=== PATIENT | female | born 1965 | race Caucasian/White ===

== ENCOUNTER 2025-02-10 15:08 | Inpatient (IN) ==
[2025-02-10 15:37] VITALS: BMI 39.2
--- NOTE | 2025-02-10 16:24 | DR.EXTPAIN ---
HPI Time seen Time Seen by Provider: 02/10/25 16:21 PCP Primary Care Physician: Dr. Bob Roque Complaint/Symptoms Chief Complaint Doctor Comments: Patient stated he she had a procedure done to provide blood flow to her left leg. She started having problem with that with a little bleeding from the left side where he Dr. Mccoy first injected 2 provide access to the right arterial system. She has not this and she went back to see Dr. Mccoy in he stated that that was pretty much normal. She started swelling of the right foot about 3 days ago and and it became progressively worse Dr. Mccoy told to come to the emergency room here first evaluated and then called him after we had done it. Chief Complaint:: Patient states that around two weeks ago she had a stent placed for her right through her left groin. She states that after the procedure she started leaking blood from the site. She states that she followed up due to the finding and that Dr. Mccoy stated that it was normal. She states that her right foot has been swelling more and more since the procedure. She states that the swelling comes and goes, but for the past couple of days it has remained swollen and has gotten worse. She states that she is unable to walk on the right foot, and reports the pain a 10/10. COVID-19 Coronavirus risk:travel/contact w/high risk person: No Has patient experienced Coronavirus symptoms: No Source History Provided: Patient Mode of arrival Mode of Arrival: Wheelchair Timing Onset of Chief Complaint: 01/27/25 PMH PMH Past Medical History: Yes Past Medical History: Depression and Hypertension Past Medical History Comment: Afib Past Surgical History: Yes Surgical History: Cholecystectomy and Ortho Surgery Past Surgical History Comment: Pace maker, right foot (screws, pins, plate) Family History History of Family Medical Conditions: Yes Family Medical History: Diabetes Mellitus, Coronary Artery Disease and Hypertension Social History Does patient currently use any type of tobacco product: Yes Have you used tobacco products in the last 12 months: Yes Type of Tobacco Use: Cigarettes Does any household member use tobacco: Yes Alcohol Use: None Do you use any recreational Drugs:: No Lives With: Family Lives Where: Home Travel Risk Coronavirus risk:travel/contact w/high risk person: No Has patient experienced Coronavirus symptoms: No Infectious screening In the last 2 months have you had wt loss of >10#?: NO Have you had fever, night sweats or hemotysis?: No Have you traveled outside the country in the last 6 months?: No Isolation: Standard PE Vital Signs Vitals: Vital Signs Temperature 98.0 F Pulse Rate 89 Respiratory Rate 18 Blood Pressure 139/100 O2 Sat by Pulse Oximetry 97 ROR Labs Reviewed 02/14/25 05:01 02/14/25 05:01 Laboratory: 02/10/25 17:36 Blood Blood Culture - Preliminary 02/10/25 16:20 Blood Blood Culture - Preliminary WBC 9.4 X10^3/uL (3.6-10.0) 02/10/25 16:20 RBC 4.16 X10^6/uL (3.5-5.4) 02/10/25 16:20 Hgb 13.3 g/dL (12.0-16.0) 02/10/25 16:20 Hct 39.4 % (36.0-47.0) 02/10/25 16:20 MCV 94.7 fL (80.0-100.0) 02/10/25 16:20 MCH 32.0 pg (27.0-34.0) 02/10/25 16:20 MCHC 33.8 g/dL (33.0-35.0) 02/10/25 16:20 RDW 13.3 % (11.6-16.5) 02/10/25 16:20 Plt Count 254 X10^3/uL (150.0-450.0) 02/10/25 16:20 MPV 7.8 fL (7.4-11.0) 02/10/25 16:20 Neut % (Auto) 58.8 % (42.0-75.0) 02/10/25 16:20 Lymph % (Auto) 29.6 % (21.0-51.0) 02/10/25 16:20 [place] % (Auto) 8.7 % (0.0-13.0) 02/10/25 16:20 Eos % (Auto) 2.2 % (0.9-2.9) 02/10/25 16:20 Baso % (Auto) 0.7 % (0.2-1.0) 02/10/25 16:20 Neut # (Auto) 5.5 x10^3/uL (2.2-4.8) H 02/10/25 16:20 Lymph # (Auto) 2.8 X10^3/uL (1.3-2.9) 02/10/25 16:20 [place] # (Auto) 0.8 x10^3/uL (0.3-0.8) 02/10/25 16:20 Eos # (Auto) 0.2 x10^3/uL (0.0-0.2) 02/10/25 16:20 Baso # (Auto) 0.1 X10^3/uL (0.0-0.1) 02/10/25 16:20 Absolute Nucleated RBC 0.0 /100WBC 02/10/25 16:20 PT 13.8 SECONDS (11.8-14.3) 02/10/25 16:20 INR Target Range - 02/10/25 16:20 INR 1.05 (0.8-1.3) 02/10/25 16:20 APTT 27.8 SECONDS (22.9-36.5) 02/10/25 16:20 PTT Comment - 02/10/25 16:20 D-Dimer 0.85 ug/ml (0.0-0.57) H 02/10/25 16:20 Sodium 138 mmol/L (136-145) 02/10/25 16:20 Corrected Sodium 138 mmol/L (136-145) 02/10/25 16:20 Potassium 3.6 mmol/L (3.5-5.1) 02/10/25 16:20 Chloride 104 mmol/L (98-107) 02/10/25 16:20 Carbon Dioxide 25.0 mmol/L (21-32) 02/10/25 16:20 BUN 12 mg/dL (7-18) 02/10/25 16:20 Creatinine 0.87 mg/dL (0.55-1.02) 02/10/25 16:20 Est GFR (MDRD) Af Amer > 60 (>60) 02/10/25 16:20 Est GFR (MDRD) Non-Af > 60 (>60) 02/10/25 16:20 Glucose 118 mg/dL (65-99) H 02/10/25 16:20 Lactic Acid 1.4 mmol/L (0.4-2.0) 02/10/25 16:20 Calcium 8.3 mg/dL (8.5-10.1) L 02/10/25 16:20 Corrected Calcium 9.1 mg/dL (8.5-10.1) 02/10/25 16:20 Total Bilirubin 0.30 mg/dL (0.2-1.0) 02/10/25 16:20 AST 13 Units/L (15-37) L 02/10/25 16:20 ALT 12 Units/L (12-78) 02/10/25 16:20 Alkaline Phosphatase 90 Units/L (46-116) 02/10/25 16:20 Total Protein 6.8 g/dL (6.4-8.2) 02/10/25 16:20 Albumin 3.0 g/dL (3.4-5.0) L 02/10/25 16:20 Globulin 3.8 g/dL (2.5-4.5) 02/10/25 16:20 Albumin/Globulin Ratio 0.8 Ratio (1.1-2.1) L 02/10/25 16:20 Opioid Opioid Risk Tool Age (Aj box if 16-45): No History of Preadolescent Sexual Abuse: No Total: 0 Total Score Risk Category: Low Risk Copyright: Arley GUERRA predicting aberrant behaviors Discharge Plan Diagnosis Discharge Problem: Ischemia of right lower extremity Discharge Plan Patient Disposition: ADMITTED INPATIENT Condition: Stable
[2025-02-10 17:09] LABS: BASOPHILS # (AUTO) 0.1 X10^3/uL (0.0-0.1); BASOPHILS % (AUTO) 0.7 % (0.2-1.0); EOSINOPHILS # (AUTO) 0.2 x10^3/uL (0.0-0.2); EOSINOPHILS % (AUTO) 2.2 % (0.9-2.9); HEMATOCRIT 39.4 % (36.0-47.0); HEMOGLOBIN 13.3 g/dL (12.0-16.0); LYMPHOCYTES # (AUTO) 2.8 X10^3/uL (1.3-2.9); LYMPHOCYTES % (AUTO) 29.6 % (21.0-51.0); MEAN CORPUSCULAR HGB CONC 33.8 g/dL (33.0-35.0); MEAN CORPUSCULAR VOLUME 94.7 fL (80.0-100.0); MEAN PLATELET VOLUME 7.8 fL (7.4-11.0); MONOCYTES # (AUTO) 0.8 x10^3/uL (0.3-0.8); MONOCYTES % (AUTO) 8.7 % (0.0-13.0); NEUTROPHILS # (AUTO) 5.5 x10^3/uL (2.2-4.8); NEUTROPHILS % (AUTO) 58.8 % (42.0-75.0); PLATELET COUNT 254 X10^3/uL (150.0-450.0); RED BLOOD COUNT 4.16 X10^6/uL (3.5-5.4); RED CELL DISTRIBUTION WIDTH 13.3 % (11.6-16.5); WHITE BLOOD COUNT 9.4 X10^3/uL (3.6-10.0)
[2025-02-10 17:16] LABS: INR 1.05 (0.8-1.3)
--- NOTE | 2025-02-10 17:16 | VAS ---
EXAM: LOWER EXT VENOUS, UNILATERAL HISTORY: Swelling and redness of the left foot; SWELLING/REDNESS RT FOOT COMPARISON: None available. TECHNIQUE: Multiple garcía scale and color flow Doppler images of the deep venous system were obtained of the right lower extremity. FINDINGS: The deep venous system of the right lower extremity was evaluated from the level of the common femoral vein through the popliteal vein. Normal color flow and augmentation can be observed. In addition, normal compression is seen throughout the deep venous system. IMPRESSION: Negative for DVT. THIS IS AN ELECTRONICALLY VERIFIED FINAL REPORT 02/10/2025 5:13 PM - Electronically signed by Conrado Loza MD
[2025-02-10 17:21] LABS: ALANINE AMINOTRANSFERASE 12 Units/L (12-78); ALKALINE PHOSPHATASE 90 Units/L (46-116); ASPARTATE AMINO TRANSFERASE 13 Units/L (15-37); BLOOD UREA NITROGEN 12 mg/dL (7-18); CALCIUM 8.3 mg/dL (8.5-10.1); CHLORIDE 104 mmol/L (98-107); COR CA(FOR HYPOALB) 9.1 mg/dL (8.5-10.1); COR NA(FOR HYPERGLY) 138 mmol/L (136-145); CREATININE 0.87 mg/dL (0.55-1.02); GLUCOSE 118 mg/dL (65-99); POTASSIUM 3.6 mmol/L (3.5-5.1); SODIUM 138 mmol/L (136-145); TOTAL PROTEIN 6.8 g/dL (6.4-8.2); eGFR NON BLACK RACES > 60 (>60)
[2025-02-10] MEDS ORDERED: KETAMINE HCL ONE (17:42)
[2025-02-10] MEDS ORDERED: PROTAMINE SULFATE 50 MG VIAL ONE (17:42)
[2025-02-10] MEDS: DILAUDID INJ IVP PRN (19:54)
[2025-02-10] MEDS ORDERED: PHARMACY CONSULT - LOVENOX XX SCH (20:00)
[2025-02-10] MEDS ORDERED: LOVENOX INJ 80 MG SYR SC SCH (20:00)
--- NOTE | 2025-02-10 20:31 | DR.H&P ---
H&P History & Physical for Day of: H&P Date: 02/10/25 Chief Complaint Chief Complaint: rest pain and blistering of the right foot History of Present Illness History of Present Illness: 60-year-old female with history of atrial fibrillation and congestive heart failure. Patient has had recent arterial intervention of the right leg including atherectomy and drug-coated balloon angioplasty of all the occluded stents of the right superficial artery, stenting of the right external iliac artery and drug-coated balloon angioplasty of the right common femoral artery. Patient was had the original procedure done on January 28. Follow-up in the office and the patient was doing well at 1 week. History as above. Patient's right foot is cool at this time. Prior to procedure done on 28 January patient had been cleared by cardiology.Patient continues to smoke heavily. Known to have critical ischemia of the left leg as well and was planning intervention of this in the near future. Past Medical History Past Medical History: CHF, COPD, Depression, GERD and Hypertension Additional Medical History: atrial fibrillation, neuropathy Past Surgical History Surgical History: Cholecystectomy and Ortho Surgery Family History Family Medical History: Coronary Artery Disease and Hypertension Social History Does patient currently use any type of tobacco product: Yes Have you used tobacco products in the last 12 months: Yes Type of Tobacco Use: Cigarettes How many years tobacco product used: 48 Does any household member use tobacco: Yes Alcohol Use: None Drug Use: None Medications Home Medications: Eliquis 5 mg twice daily Plavix 75 mg daily Percocet 5 mg tablets every 8 hours as needed Methocarbamol 750 mg daily Pramipexole Dihydrocholride 0,126 mg daily Coreg 6.25 milligrams twice daily Vitamin D 50,000 unit Montelukast 10 mg daily as needed Cetirizine 10 mg as needed Gabapentin 300 mg twice daily Atorvastatin 40 mg Omeprazole 40 mg daily Paroxetine 20 mg in the morning Diltiazem ER 180 mg daily Potassium chloride 10 mg daily Entresto 49-51 1 tablet twice daily Allergies Allergies Allergy/AdvReac Type Severity Reaction Status Date / Time No Known Allergies Allergy Verified 02/10/25 17:17 Labs 02/10/25 16:20 02/10/25 16:20 Labs: Laboratory WBC 9.4 X10^3/uL (3.6-10.0) 02/10/25 16:20 RBC 4.16 X10^6/uL (3.5-5.4) 02/10/25 16:20 Hgb 13.3 g/dL (12.0-16.0) 02/10/25 16:20 Hct 39.4 % (36.0-47.0) 02/10/25 16:20 MCV 94.7 fL (80.0-100.0) 02/10/25 16:20 MCH 32.0 pg (27.0-34.0) 02/10/25 16:20 MCHC 33.8 g/dL (33.0-35.0) 02/10/25 16:20 RDW 13.3 % (11.6-16.5) 02/10/25 16:20 Plt Count 254 X10^3/uL (150.0-450.0) 02/10/25 16:20 MPV 7.8 fL (7.4-11.0) 02/10/25 16:20 Neut % (Auto) 58.8 % (42.0-75.0) 02/10/25 16:20 Lymph % (Auto) 29.6 % (21.0-51.0) 02/10/25 16:20 [place] % (Auto) 8.7 % (0.0-13.0) 02/10/25 16:20 Eos % (Auto) 2.2 % (0.9-2.9) 02/10/25 16:20 Baso % (Auto) 0.7 % (0.2-1.0) 02/10/25 16:20 Neut # (Auto) 5.5 x10^3/uL (2.2-4.8) H 02/10/25 16:20 Lymph # (Auto) 2.8 X10^3/uL (1.3-2.9) 02/10/25 16:20 [place] # (Auto) 0.8 x10^3/uL (0.3-0.8) 02/10/25 16:20 Eos # (Auto) 0.2 x10^3/uL (0.0-0.2) 02/10/25 16:20 Baso # (Auto) 0.1 X10^3/uL (0.0-0.1) 02/10/25 16:20 Absolute Nucleated RBC 0.0 /100WBC 02/10/25 16:20 PT 13.8 SECONDS (11.8-14.3) 02/10/25 16:20 INR Target Range - 02/10/25 16:20 INR 1.05 (0.8-1.3) 02/10/25 16:20 APTT 27.8 SECONDS (22.9-36.5) 02/10/25 16:20 PTT Comment - 02/10/25 16:20 D-Dimer 0.85 ug/ml (0.0-0.57) H 02/10/25 16:20 Sodium 138 mmol/L (136-145) 02/10/25 16:20 Corrected Sodium 138 mmol/L (136-145) 02/10/25 16:20 Potassium 3.6 mmol/L (3.5-5.1) 02/10/25 16:20 Chloride 104 mmol/L (98-107) 02/10/25 16:20 Carbon Dioxide 25.0 mmol/L (21-32) 02/10/25 16:20 BUN 12 mg/dL (7-18) 02/10/25 16:20 Creatinine 0.87 mg/dL (0.55-1.02) 02/10/25 16:20 Est GFR (MDRD) Af Amer > 60 (>60) 02/10/25 16:20 Est GFR (MDRD) Non-Af > 60 (>60) 02/10/25 16:20 Glucose 118 mg/dL (65-99) H 02/10/25 16:20 Lactic Acid 1.4 mmol/L (0.4-2.0) 02/10/25 16:20 Calcium 8.3 mg/dL (8.5-10.1) L 02/10/25 16:20 Corrected Calcium 9.1 mg/dL (8.5-10.1) 02/10/25 16:20 Total Bilirubin 0.30 mg/dL (0.2-1.0) 02/10/25 16:20 AST 13 Units/L (15-37) L 02/10/25 16:20 ALT 12 Units/L (12-78) 02/10/25 16:20 Alkaline Phosphatase 90 Units/L (46-116) 02/10/25 16:20 Total Protein 6.8 g/dL (6.4-8.2) 02/10/25 16:20 Albumin 3.0 g/dL (3.4-5.0) L 02/10/25 16:20 Globulin 3.8 g/dL (2.5-4.5) 02/10/25 16:20 Albumin/Globulin Ratio 0.8 Ratio (1.1-2.1) L 02/10/25 16:20 Review of Systems Constitutional: See HPI Eyes: No Symptoms Reported ENT: No Symptoms Reported Respiratory: No Symptoms Reported Cardiovascular: Other (Cool right leg with rest pain) Gastrointestinal: No Symptoms Reported Genitourinary: No Symptoms Reported Musculoskeletal: See HPI Skin: See HPI Neurological: See HPI Physical Exam Vital Signs: Vital Signs Temperature 98.5 F Temperature 98.0 F Pulse Rate [Right Radial] 90 Pulse Rate 103 Pulse Rate 99 Pulse Rate 92 Pulse Rate 102 Pulse Rate 93 Pulse Rate 96 Pulse Rate 101 Pulse Rate 89 Respiratory Rate 20 Respiratory Rate 20 Respiratory Rate 33 Respiratory Rate 21 Respiratory Rate 7 Respiratory Rate 11 Respiratory Rate 32 Respiratory Rate 17 Respiratory Rate 21 Respiratory Rate 18 Blood Pressure [Left Arm] 165/111 Blood Pressure 144/84 Blood Pressure 144/84 Blood Pressure 131/97 Blood Pressure 139/100 O2 Sat by Pulse Oximetry 100 O2 Sat by Pulse Oximetry 100 O2 Sat by Pulse Oximetry 99 O2 Sat by Pulse Oximetry 100 O2 Sat by Pulse Oximetry 97 Oriented: Normal, Time, Person and Place Eyes: Normal Ear: Normal Nose: Normal Throat: Normal Respiratory: Wheezes Throughout Cardiovascular: Normal : Normal Auscultation: Bowel Sounds: Normal Palpation: Normal Tenderness: Normal Skin: Other (Right foot cool with early blistering) Musculoskeletal: Normal Psychiatric: Normal Mood Description: Anxious Affect: Anxious Speech Pattern: Clear and Appropriate Assessment/Plan (1) Ischemia of right lower extremity: Status: Acute Plan: Patient to be admitted. Placed on therapeutic Lovenox. Will obtain CT angiogram of the aorta with bilateral runoff (2) Congestive heart failure: Status: Acute Plan: Usual home medication (3) Essential (primary) hypertension: Status: Acute Plan: Home medications (4) Chronic obstructive pulmonary disease, unspecified: Status: Acute Plan: Home medications (5) Neuropathy: Status: Acute Plan: Home medications (6) Hyperlipidemia: Status: Acute Plan: Home medications (7) Gastro-esophageal reflux disease without esophagitis: Status: Acute Plan: Home medications (8) Atrial fibrillation: Status: Acute Plan: Will hold Eliquis for now and start therapeutic Lovenox Review H&P Reviewed: Yes Patient was examined?: Yes
--- NOTE | 2025-02-10 20:53 | EKG ---
Test Reason : Ischemic Rt. Leg Blood Pressure : */* mmHG Vent. Rate : 92 BPM Atrial Rate : * BPM P-R Int : * ms QRS Dur : 68 ms QT Int : 300 ms P-R-T Axes : * 23 -40 degrees QTc Int : 371 ms Atrial fibrillation with occasional ventricular-paced complexes Low voltage QRS Nonspecific T wave abnormality Abnormal ECG No previous ECGs available Confirmed by Dayne Li MD ([id number]) on 02/11/2025 7:06:28 AM Referred By: Confirmed By: Dayne Li MD
[2025-02-10] MEDS: LR 1,000 ML IV 1,000 ML IV SCH (21:17)
[2025-02-10] MEDS: ENTRESTO 49/51 MG TABLET PO SCH (21:18)
[2025-02-10] MEDS: COREG TAB 6.25 MG PO SCH (21:18)
[2025-02-10] MEDS: NEURONTIN CAP 300 MG PO SCH (21:18)
[2025-02-10] MEDS: SINGULAIR TAB 10 MG PO SCH (21:19)
[2025-02-10] MEDS: LOVENOX INJ 120 MG SYR SC SCH (21:19)
[2025-02-11] MEDS: HEPARIN SODIUM INJ 5000 UNITS ONE (08:13)
[2025-02-11] MEDS: CARDIZEM CD 180 MG 24-HR PO SCH (08:35)
--- NOTE | 2025-02-11 08:41 | RAD ---
EXAMINATION: CHEST, 1 VIEW HISTORY: PRE OP-ISCHEMIA RIGHT LEG ; HTN, AFIB SX: MIKE, ORTHO, PACEMAKER, RIGHT FOOT . COMPARISON STUDY: None. TECHNIQUE: Single portable AP view chest FINDINGS: Lungs are expanded. Moderate cardiac silhouette enlargement. Normal pulmonary vascular pattern. Cardiac pacer device left upper chest. Bones appear intact IMPRESSION: Cardiac silhouette enlargement. THIS IS AN ELECTRONICALLY VERIFIED FINAL REPORT 02/11/2025 8:38 AM - Electronically signed by Kerry Ibanez MD
--- NOTE | 2025-02-11 08:46 | RAD ---
EXAM: Portable chest HISTORY: PICC placement COMPARISON: 02/11/2025 FINDINGS: T here is a pacemaker present in the left axilla. There is a new left-sided PICC line with its tip in the expected position of the superior vena cava. Heart is enlarged. No congestive heart failure is noted. No acute alveolar infiltrates, pleural effusions, or pneumothoraces identified. Bony thorax is unremarkable. IMPRESSION: Right PICC tip superior vena cava Cardiomegaly without congestive heart failure No infiltrates THIS IS AN ELECTRONICALLY VERIFIED FINAL REPORT 02/11/2025 8:43 AM - Electronically signed by Misael Montenegro MD
--- NOTE | 2025-02-11 08:56 | DR.UPDATE ---
H&P Update Prescription drug monitoring program results: PDMP was not reviewed H&P Reviewed: Yes Any changes to H&P?: No Patient was examined?: Yes Vital Signs: Temp Pulse Pulse Resp BP BP BP 02/11/25 08:25 98.6 F 98 H 20 132/98 02/11/25 07:00 02/11/25 06:26 18 02/11/25 05:56 18 02/11/25 04:00 98.2 F 85 19 134/82 02/11/25 00:36 20 02/11/25 00:06 20 02/11/25 00:00 98.1 F 99 H 20 155/89 02/10/25 22:41 122/77 02/10/25 21:00 167/100 02/10/25 20:24 20 02/10/25 20:00 98.3 F 76 20 02/10/25 19:54 20 02/10/25 19:00 02/10/25 18:49 98.5 F 90 20 165/111 02/10/25 17:15 103 H 33 H 02/10/25 16:45 99 H 21 02/10/25 16:31 144/84 02/10/25 16:31 144/84 02/10/25 16:31 92 H 7 L 02/10/25 16:30 102 H 11 L 02/10/25 16:15 93 H 32 H 02/10/25 16:00 96 H 17 02/10/25 15:56 101 H 21 02/10/25 15:54 131/97 02/10/25 15:24 98.0 F 89 18 139/100 Pulse Ox O2 Del Method 02/11/25 08:25 98 Room Air 02/11/25 07:00 Room Air 02/11/25 06:26 02/11/25 05:56 02/11/25 04:00 96 02/11/25 00:36 02/11/25 00:06 02/11/25 00:00 99 02/10/25 22:41 02/10/25 21:00 02/10/25 20:24 02/10/25 20:00 99 02/10/25 19:54 02/10/25 19:00 Room Air 02/10/25 18:49 100 02/10/25 17:15 100 02/10/25 16:45 02/10/25 16:31 02/10/25 16:31 02/10/25 16:31 02/10/25 16:30 02/10/25 16:15 02/10/25 16:00 99 02/10/25 15:56 100 02/10/25 15:54 02/10/25 15:24 97 Room Air Procedures (ALL) - Central Line Placement PCM.CLCO: written consent Time out performed: Yes Patient placed pm monitor/pulse ox: Yes MD prep: mask, gown, gloves, other Centrial line prep: chlorhexidine scrub, sterile drapes applied Local anesthsia used: lidocane 1% Ultrasound used for placement: Yes (left basilic vein id'd via u/s and cannulation vis) Central line lumen ininserted: double (5.5fr arrowgard; trimmed to 45cm, 1cm exposed) Post procedure: good blood return, all ports aspirated, flushed,capped, sterile dressing applied Post procedure xray: tip oc catheter in good position (appears svc; radiology report pending) Patient tolerated procedure: Yes Complications: none
[2025-02-11] MEDS: LOVENOX INJ 100 MG SYR SC SCH (09:46)
[2025-02-11] MEDS: ROBAXIN PO SCH (12:57)
[2025-02-11] MEDS: KLOR-CON 10 MEQ TAB PO SCH (12:57)
[2025-02-11] MEDS: ASPIRIN EC 81 MG PO SCH (12:57)
[2025-02-11] MEDS: PROTONIX TAB 40 MG PO SCH (12:58)
[2025-02-11] MEDS: LIPITOR TAB 40 MG PO SCH (12:58)
[2025-02-11] MEDS: ZyrTEC TAB 10 MG PO SCH (12:58)
[2025-02-11] MEDS: MIRAPEX TAB 0.25 MG PO SCH (12:58)
[2025-02-11] MEDS: VITAMIN D3 125 mcg (5,000 UNITS) PO SCH (12:58)
[2025-02-11] MEDS: PAXIL PO SCH (12:59)
--- NOTE | 2025-02-11 13:07 | CT ---
EXAM: CT ANGIOGRAM ABDOMEN, PELVIS, AND BILATERAL LOWER EXTREMITIES WITH AND WITHOUT CONTRAST 3-DIMENSIONAL RECONSTRUCTED IMAGES AT INDEPENDENT WORKSTATION. HISTORY: ISCHEMIC RIGHT LEG ; . COMPARISON: CTA dated 11/26/2024. TECHNIQUE: Axial CT images were obtained through the abdomen and pelvis and bilateral lower extremities both before after the intravenous administration of contrast. Coronal and sagittal reformatted images were included. MIP images were also performed. 3D reconstructions were performed with concurrent physician supervision at a separate independent workstation and MIP images were also performed. Informed written consent was obtained from the patient prior to contrast administration. All CT scans at this facility use dose modulation, iterative reconstruction, and/or weight based dosing when appropriate to reduce radiation dose to as low as reasonably achievable. FINDINGS: VASCULAR FINDINGS: ABDOMEN/PELVIS: Moderate mixed abdominal aortic plaque without aneurysm or stenosis. Patent celiac trunk with mixed plaque in the midportion. Widely patent superior mesenteric artery. Moderate right and mild left renal artery stenosis. Inferior mesenteric artery is patent. Mixed plaque throughout the left common and external iliac arteries with scattered moderate stenosis. Mixed right common iliac artery plaque with mild stenosis. Right external iliac artery stent is widely patent with surrounding moderate calcified plaque. LEFT LOWER EXTREMITY: Calcified plaque in the left common femoral artery with [id number]-[id number] stenosis. Patent left profunda femoral artery. Mixed plaque throughout the left superficial femoral artery which is diminutive with scattered areas of moderate stenosis. Left popliteal artery and tibioperoneal trunk are patent with moderate calcifications. Left calf arteries are diminutive and there is a single-vessel runoff to the left ankle via the posterior tibial artery. RIGHT LOWER EXTREMITY: Mixed plaque in the right common femoral artery with moderate stenosis. Right profunda femoral artery is somewhat diminutive but patent. The right superficial femoral artery stent is completely occluded. There is distal reconstitution of the right popliteal artery via collateral flow with diminutive popliteal artery. Distal right calf arteries are diminutive and poorly opacified and there is a single-vessel runoff to the right ankle via the posterior tibial artery. NON VASCULAR FINDINGS: Clear lung bases. Partially visualized ICD/pacer leads. Unremarkable liver. Prior cholecystectomy. No biliary dilatation. Spleen, pancreas, and adrenals are unremarkable. Kidneys enhance symmetrically and there is no hydronephrosis. No abnormally distended or focally thickened bowel loops. Normal right lower quadrant appendix. Mild colonic stool burden. No free peritoneal air or fluid. Unremarkable urinary bladder. Uterus and adnexa are within normal limits. No free pelvic fluid. No acute osseous findings. Moderate lumbar spondylosis. Stable postsurgical changes of the distal right fibula with fixation hardware in place. IMPRESSION: 1. Right superficial femoral artery stent is completely occluded with distal reconstitution at the right popliteal artery via collateral flow. Right calf arteries are diminutive with a single-vessel runoff to the right ankle via the posterior tibial artery. 2. Moderate left lower extremity peripheral vascular disease with scattered areas of moderate stenosis throughout the left superficial femoral artery. Single-vessel runoff to the left ankle via the posterior tibial artery. 3. No acute findings in the abdomen or pelvis. THIS IS AN ELECTRONICALLY VERIFIED FINAL REPORT 02/11/2025 12:55 PM - Electronically signed by Min Goss MD
[2025-02-11] MEDS: ACTIVASE CATHFLO 12 MG in NS 250 ML IV 228 ML IV SCH (15:00)
[2025-02-11] MEDS: NS 1,000 ML IV 1,000 ML ONE (15:16)
[2025-02-11] MEDS: LR 1,000 ML IV 1,000 ML IV ONE (15:20)
[2025-02-11] MEDS: NS 100 ML IV 100 ML ONE (15:21)
[2025-02-11] MEDS: ANCEF VIAL 1 GRAM ONE (15:21)
[2025-02-11] MEDS: LR 1,000 ML IV 300 ML IV PRN (15:31)
[2025-02-11] MEDS: ZOFRAN INJ 4 MG VIAL ONE (15:31)
[2025-02-11] MEDS: VERSED ONE (15:31)
[2025-02-11] MEDS: DECADRON INJ ONE (15:31)
[2025-02-11] MEDS: DIPRIVAN VIAL 20 ML ONE ×2 (15:31→15:54)
[2025-02-11] MEDS: ANCEF VIAL 1 GRAM IV PRN (15:31)
[2025-02-11] MEDS: KETAMINE HCL ONE (15:31)
[2025-02-11] MEDS: OMNIPAQUE 350 mg/mL 100 mL BTL 100 ML ONE (15:31)
[2025-02-11] MEDS: PEPCID 20 MG VIAL ONE (15:31)
[2025-02-11] MEDS: REGLAN INJ 10 MG VIAL ONE (15:31)
[2025-02-11] MEDS: XYLOCAINE 2 % (PLAIN) ONE (15:31)
[2025-02-11] MEDS: PEPCID 20 MG VIAL IVP PRN (15:36)
[2025-02-11] MEDS: VERSED IVP PRN (15:36)
[2025-02-11] MEDS: REGLAN INJ 10 MG VIAL IVP PRN (15:37)
[2025-02-11] MEDS: XYLOCAINE 2 % (PLAIN) INJ PRN (15:37)
[2025-02-11] MEDS: ZOFRAN INJ 4 MG VIAL IVP PRN (15:37)
[2025-02-11] MEDS: DIPRIVAN IVP PRN (15:38)
[2025-02-11] MEDS: PRECEDEX INJ VIAL IVP PRN (15:38)
[2025-02-11] MEDS: KETAMINE HCL IV PRN (15:38)
[2025-02-11] MEDS: DECADRON INJ IVP PRN (15:45)
[2025-02-11] MEDS: VISIPAQUE 50 ML ONE (15:51)
[2025-02-11] MEDS: MARCAINE 0.5% ONE (15:51)
[2025-02-11] MEDS: VISIPAQUE 100 ML ONE (15:51)
[2025-02-11] MEDS: HEPARIN 1,000 UNIT/500 ML-NS 3,000 UNIT/1,500 ML IV.SOLN ONE (15:51)
[2025-02-11] MEDS: NEO-SYNEPHRINE INJ ONE (15:58)
[2025-02-11] MEDS: NEO-SYNEPHRINE INJ IVP PRN (16:40)
--- NOTE | 2025-02-11 16:42 | OR.IMMED ---
IMMEDIATE POST-OP NOTE Immediate Post-Op Note Date of surgery/procedure: 02/11/25 Pre-Op Diagnosis: Thrombosis of right superficial femoral artery stents Post-Op Diagnosis: Same Procedure: Attempted arteriogram of the right leg Description of Procedure: Could not access arterial structures antegrade or retrograde Surgeon/Millwright: Darius Findings: as above Estimated Blood Loss: 100cc Complications: none Progress Notes: To the floor. Will need to come back another time with plan to approach this from brachial artery stick from above.
[2025-02-11] MEDS ORDERED: PRECEDEX INJ VIAL ONE (16:49)
[2025-02-11] MEDS: NICOTINE PATCH TD SCH (20:56)
[2025-02-12 06:04] LABS: BASOPHILS % (AUTO) 0.1 % (0.2-1.0); HEMATOCRIT 31.6 % (36.0-47.0); HEMOGLOBIN 10.8 g/dL (12.0-16.0); LYMPHOCYTES # (AUTO) 1.1 X10^3/uL (1.3-2.9); LYMPHOCYTES % (AUTO) 12.4 % (21.0-51.0); MEAN CORPUSCULAR HEMOGLOBIN 32.1 pg (27.0-34.0); MEAN CORPUSCULAR HGB CONC 34.1 g/dL (33.0-35.0); MEAN CORPUSCULAR VOLUME 94.1 fL (80.0-100.0); MEAN PLATELET VOLUME 7.7 fL (7.4-11.0); MONOCYTES # (AUTO) 0.5 x10^3/uL (0.3-0.8); MONOCYTES % (AUTO) 5.3 % (0.0-13.0); NEUTROPHILS # (AUTO) 7.2 x10^3/uL (2.2-4.8); NEUTROPHILS % (AUTO) 82.2 % (42.0-75.0); PLATELET COUNT 215 X10^3/uL (150.0-450.0); RED BLOOD COUNT 3.36 X10^6/uL (3.5-5.4); RED CELL DISTRIBUTION WIDTH 13.2 % (11.6-16.5); WHITE BLOOD COUNT 8.8 X10^3/uL (3.6-10.0)
[2025-02-12 07:09] LABS: ALANINE AMINOTRANSFERASE 115 Units/L (12-78); ALBUMIN 2.6 g/dL (3.4-5.0); ALKALINE PHOSPHATASE 132 Units/L (46-116); ASPARTATE AMINO TRANSFERASE 98 Units/L (15-37); BLOOD UREA NITROGEN 11 mg/dL (7-18); CALCIUM 8.3 mg/dL (8.5-10.1); CARBON DIOXIDE 25.6 mmol/L (21-32); CHLORIDE 106 mmol/L (98-107); COR CA(FOR HYPOALB) 9.4 mg/dL (8.5-10.1); COR NA(FOR HYPERGLY) 142 mmol/L (136-145); CREATININE 0.75 mg/dL (0.55-1.02); GLUCOSE 142 mg/dL (65-99); POTASSIUM 4.2 mmol/L (3.5-5.1); SODIUM 141 mmol/L (136-145); TOTAL PROTEIN 6.8 g/dL (6.4-8.2); eGFR NON BLACK RACES > 60 (>60)
--- NOTE | 2025-02-12 10:20 | DR.OPNOTE ---
OP NOTE Pre-Op Diagnosis: Critical ischemia right leg with thrombosed right superficial femoral arter Post-Op Diagnosis: Same Procedure Date Date Of Procedure: 02/11/25 Procedure: PROCEDURE: Aortogram, ultrasound-guided puncture of the right femoral artery NARRATIVE: The patient was taken the operative suite and placed in the supine position and given IV sedation supervised by myself. The entire right leg and the left groin prepped and draped in sterile fashion. Patient given intravenous sedation supervised by myself. Timeout for the procedure obtained . Ultrasound used to examine the left groin but I could not readily tell where the artery was. I could see no color-flow and the patient does have a history of an Angio- Seal placed in the artery. I numbed up the skin with Xylocaine and punctureed what I thought was the artery and it being the vein after placing the micro sheath and the larger catheter and repeating arteriogram which proved this to be the iliac vein and vena cava. Therefore , I attempted puncture of the right femoral artery using ultrasound and was able to get a wire up and the sheath for the arteriogram showed I was in an accessory artery probably epigastric artery and not the iliac artery itself. At this time I could get the wire to go down through the stents in the superficial femoral artery to perform thrombolysis. Therefore ,we will plan intervention from above from the left brachial artery in a couple of days. Patient will remain on Lovenox in the meantime with pain control and control of her tobacco abuse habit with nicotine patches. Type of Anesthesia: Local (0.5% Marcaine) Anesthesia Comment: plus MAC Findings: Completely occluded right superficial femoral artery stents. Unable to obtain access to the left femoral artery to come across the top of aorta and access from the right femoral artery also difficult.. We stopped the procedure and we will plan approach of the occluded superficial marginal right side via a brachial approach to come down the aorta and placed the EKOS catheter. Type of Fluids Used:: Lactated Ringers (300cc) Urine output: 200cc EBL: 100cc Disposition/Condition: Pt. tolerated procedure without difficulty. Taken to the floor in stable condition.
--- NOTE | 2025-02-12 12:21 | NOTE.SOAP ---
Soap Note Note for Day of Date of Exam: 02/12/25 Subjective Data Subjective Data: Patient was occluded right superficial femoral artery stents. Unable to get a thrombolytic catheter across this. Patient remains on Lovenox, nicotine patch and pain control. Objective Data Temperature: 98.1 F Pulse Rate: 89 Respiratory Rate: 18 Blood Pressure: 127/79 O2 Sat by Pulse Oximetry: 97 Objective Data: Right foot remains cool but moves all toes well. Hemoglobin equals 10.8 creatinine equals 0.75 white blood cell count equals 8.8 thousand Assessment Assessment: Thrombosis of right superficial artery, failed attempt at placement of thrombolytic catheter yesterday Plan Plan: Will plan attempt of placement of thrombolytic catheter from the left arm tomorrow.
[2025-02-12] MEDS: DILAUDID INJ IVP PRN (14:26)
[2025-02-13] MEDS: HIBICLENS WASH EXT ONE (04:49)
[2025-02-13 06:06] LABS: BASOPHILS # (AUTO) 0.1 X10^3/uL (0.0-0.1); BASOPHILS % (AUTO) 0.8 % (0.2-1.0); EOSINOPHILS # (AUTO) 0.1 x10^3/uL (0.0-0.2); EOSINOPHILS % (AUTO) 1.3 % (0.9-2.9); HEMATOCRIT 27.7 % (36.0-47.0); HEMOGLOBIN 9.4 g/dL (12.0-16.0); LYMPHOCYTES # (AUTO) 2.5 X10^3/uL (1.3-2.9); LYMPHOCYTES % (AUTO) 27.8 % (21.0-51.0); MEAN CORPUSCULAR HEMOGLOBIN 32.1 pg (27.0-34.0); MEAN CORPUSCULAR VOLUME 94.5 fL (80.0-100.0); MEAN PLATELET VOLUME 7.8 fL (7.4-11.0); MONOCYTES # (AUTO) 0.6 x10^3/uL (0.3-0.8); MONOCYTES % (AUTO) 6.4 % (0.0-13.0); NEUTROPHILS # (AUTO) 5.7 x10^3/uL (2.2-4.8); NEUTROPHILS % (AUTO) 63.7 % (42.0-75.0); PLATELET COUNT 214 X10^3/uL (150.0-450.0); RED BLOOD COUNT 2.93 X10^6/uL (3.5-5.4); RED CELL DISTRIBUTION WIDTH 13.5 % (11.6-16.5); WHITE BLOOD COUNT 8.9 X10^3/uL (3.6-10.0)
[2025-02-13 06:18] LABS: ALANINE AMINOTRANSFERASE 68 Units/L (12-78); ALBUMIN 2.5 g/dL (3.4-5.0); ALKALINE PHOSPHATASE 110 Units/L (46-116); ASPARTATE AMINO TRANSFERASE 38 Units/L (15-37); BLOOD UREA NITROGEN 11 mg/dL (7-18); CHLORIDE 106 mmol/L (98-107); COR CA(FOR HYPOALB) 9.2 mg/dL (8.5-10.1); COR NA(FOR HYPERGLY) 141 mmol/L (136-145); CREATININE 0.65 mg/dL (0.55-1.02); GLUCOSE 116 mg/dL (65-99); POTASSIUM 3.9 mmol/L (3.5-5.1); SODIUM 141 mmol/L (136-145); TOTAL PROTEIN 6.6 g/dL (6.4-8.2); eGFR NON BLACK RACES > 60 (>60)
[2025-02-13] MEDS: VERSED ONE (13:32)
[2025-02-13] MEDS: DIPRIVAN VIAL 20 ML ONE ×2 (13:33→15:01)
[2025-02-13] MEDS: ZOFRAN INJ 4 MG VIAL ONE (13:36)
[2025-02-13] MEDS: REGLAN INJ 10 MG VIAL ONE (13:36)
[2025-02-13] MEDS: HEPARIN SODIUM INJ 5000 UNITS ONE (13:40)
[2025-02-13] MEDS: PEPCID 20 MG VIAL ONE (13:49)
[2025-02-13] MEDS: ZOFRAN INJ 4 MG VIAL IVP PRN (14:09)
[2025-02-13] MEDS: PEPCID 20 MG VIAL IVP PRN (14:09)
[2025-02-13] MEDS: REGLAN INJ 10 MG VIAL IVP PRN (14:09)
[2025-02-13] MEDS: NS 100 ML IV 100 ML ONE (14:10)
[2025-02-13] MEDS: LR 1,000 ML IV 1,000 ML IV ONE (14:10)
[2025-02-13] MEDS: ANCEF VIAL 1 GRAM ONE (14:10)
[2025-02-13] MEDS: LR 1,000 ML IV 100 ML IV PRN (14:14)
[2025-02-13] MEDS: ANCEF VIAL 1 GRAM IV PRN (14:14)
[2025-02-13] MEDS: VERSED IVP PRN (14:19)
[2025-02-13] MEDS: DIPRIVAN IVP PRN (14:23)
[2025-02-13] MEDS: PRECEDEX INJ VIAL IVP PRN (14:23)
[2025-02-13] MEDS: KETAMINE HCL IV PRN (14:23)
[2025-02-13] MEDS: FENTANYL VIAL INJ 100 mcg ONE (14:29)
[2025-02-13] MEDS: ROBINUL ONE (14:37)
[2025-02-13] MEDS: VISIPAQUE 50 ML ONE (14:40)
[2025-02-13] MEDS: VISIPAQUE 100 ML ONE (14:40)
[2025-02-13] MEDS: MARCAINE 0.5% ONE (14:40)
[2025-02-13] MEDS: HEPARIN 1,000 UNIT/500 ML-NS 3,000 UNIT/1,500 ML IV.SOLN ONE (14:40)
[2025-02-13] MEDS: ROBINUL IVP PRN (14:42)
[2025-02-13] MEDS: HEPARIN SODIUM INJ 5000 UNITS IVP PRN (14:44)
[2025-02-13] MEDS: OFIRMEV IV 1000 MG VIAL 1,000 MG/100 ML VIAL IV ONE (14:52)
[2025-02-13] MEDS: NEO-SYNEPHRINE INJ ONE (14:54)
[2025-02-13] MEDS: NEO-SYNEPHRINE INJ IVP PRN (15:14)
[2025-02-13] MEDS: FENTANYL VIAL INJ 100 mcg IVP PRN (15:17)
[2025-02-13] MEDS: XYLOCAINE 2 % (PLAIN) INJ PRN (15:21)
[2025-02-13] MEDS: ACTIVASE CATHFLO 12 MG in NS 250 ML IV 228 ML IV SCH (15:40)
[2025-02-13] MEDS: ACTIVASE CATHFLO ONE (15:40)
[2025-02-13] MEDS: NS 1,000 ML IV 1,000 ML ONE (15:40)
[2025-02-13 16:33] LABS: BASOPHILS % (AUTO) 0.3 % (0.2-1.0); EOSINOPHILS # (AUTO) 0.2 x10^3/uL (0.0-0.2); EOSINOPHILS % (AUTO) 2.4 % (0.9-2.9); HEMATOCRIT 24.6 % (36.0-47.0); HEMOGLOBIN 8.1 g/dL (12.0-16.0); LYMPHOCYTES # (AUTO) 2.5 X10^3/uL (1.3-2.9); LYMPHOCYTES % (AUTO) 30.6 % (21.0-51.0); MEAN CORPUSCULAR HEMOGLOBIN 31.3 pg (27.0-34.0); MEAN CORPUSCULAR VOLUME 94.9 fL (80.0-100.0); MEAN PLATELET VOLUME 7.6 fL (7.4-11.0); MONOCYTES # (AUTO) 0.6 x10^3/uL (0.3-0.8); MONOCYTES % (AUTO) 7.4 % (0.0-13.0); NEUTROPHILS # (AUTO) 4.9 x10^3/uL (2.2-4.8); NEUTROPHILS % (AUTO) 59.3 % (42.0-75.0); PLATELET COUNT 187 X10^3/uL (150.0-450.0); RED BLOOD COUNT 2.59 X10^6/uL (3.5-5.4); RED CELL DISTRIBUTION WIDTH 13.4 % (11.6-16.5); WHITE BLOOD COUNT 8.3 X10^3/uL (3.6-10.0)
[2025-02-13] MEDS: NS 500 ML IV 500 ML IV SCH (18:46)
[2025-02-13] MEDS: ACTIVASE CATHFLO 12 MG in NS 250 ML IV 228 ML INTRACATH ONE (18:46)
[2025-02-13] MEDS: OMNIPAQUE 350 mg/mL 50 mL BTL 50 ML ONE (18:50)
[2025-02-13] MEDS: PAXIL PO SCH (20:30)
[2025-02-13 23:08] LABS: BASOPHILS % (AUTO) 0.5 % (0.2-1.0); EOSINOPHILS # (AUTO) 0.2 x10^3/uL (0.0-0.2); MEAN PLATELET VOLUME 7.1 fL (7.4-11.0); NEUTROPHILS % (AUTO) 64.7 % (42.0-75.0); RED CELL DISTRIBUTION WIDTH 13.3 % (11.6-16.5)
[2025-02-13 23:22] LABS: EOSINOPHILS % (AUTO) 2.4 % (0.9-2.9); HEMATOCRIT 20.3 % (36.0-47.0); LYMPHOCYTES % (AUTO) 21.6 % (21.0-51.0); MEAN CORPUSCULAR HEMOGLOBIN 32.4 pg (27.0-34.0); MEAN CORPUSCULAR HGB CONC 34.3 g/dL (33.0-35.0); MEAN CORPUSCULAR VOLUME 94.5 fL (80.0-100.0); MONOCYTES % (AUTO) 10.8 % (0.0-13.0); PLATELET COUNT 146 X10^3/uL (150.0-450.0); RED BLOOD COUNT 2.14 X10^6/uL (3.5-5.4); WHITE BLOOD COUNT 9.3 X10^3/uL (3.6-10.0)
--- NOTE | 2025-02-14 00:19 | OR.IMMED ---
IMMEDIATE POST-OP NOTE Immediate Post-Op Note Date of surgery/procedure: 02/13/25 Pre-Op Diagnosis: Critical ischemia right leg, thrombosis of right superficial femoral artery stents Post-Op Diagnosis: Same Procedure: Access via the left brachial artery, aortogram, arteriogram right leg placement of EKOS catheter for directed thrombolysis of the occluded stents of the right leg in the superficial femoral artery Description of Procedure: Dictated Surgeon/Rail Gang Supervisor: José Miguel Mccoy MD, FACS Findings: Complete occlusion of the right superficial femoral artery which has stents lining it. Patent popliteal artery distally, one-vessel runoff via the posterior tibial artery to the ankle Estimated Blood Loss: 100 cc Complications: None Progress Notes: Patient taken to the ICU for routine postoperative care for directed thrombolysis using EKOS catheter.
[2025-02-14] MEDS: NS 250 ML IV 250 ML IV ONE ×2 (01:19→19:41)
[2025-02-14 05:14] LABS: BASOPHILS # (AUTO) 0.1 X10^3/uL (0.0-0.1); BASOPHILS % (AUTO) 0.7 % (0.2-1.0); EOSINOPHILS # (AUTO) 0.3 x10^3/uL (0.0-0.2); EOSINOPHILS % (AUTO) 3.1 % (0.9-2.9); HEMATOCRIT 23.6 % (36.0-47.0); HEMOGLOBIN 8.1 g/dL (12.0-16.0); LYMPHOCYTES # (AUTO) 1.7 X10^3/uL (1.3-2.9); LYMPHOCYTES % (AUTO) 19.2 % (21.0-51.0); MEAN CORPUSCULAR HGB CONC 34.3 g/dL (33.0-35.0); MEAN CORPUSCULAR VOLUME 93.3 fL (80.0-100.0); MONOCYTES # (AUTO) 0.9 x10^3/uL (0.3-0.8); MONOCYTES % (AUTO) 10.9 % (0.0-13.0); NEUTROPHILS # (AUTO) 5.8 x10^3/uL (2.2-4.8); NEUTROPHILS % (AUTO) 66.1 % (42.0-75.0); PLATELET COUNT 138 X10^3/uL (150.0-450.0); RED BLOOD COUNT 2.53 X10^6/uL (3.5-5.4); RED CELL DISTRIBUTION WIDTH 13.8 % (11.6-16.5); WHITE BLOOD COUNT 8.7 X10^3/uL (3.6-10.0)
[2025-02-14 05:28] LABS: ALANINE AMINOTRANSFERASE 39 Units/L (12-78); ALKALINE PHOSPHATASE 85 Units/L (46-116); ASPARTATE AMINO TRANSFERASE 24 Units/L (15-37); BLOOD UREA NITROGEN 12 mg/dL (7-18); CALCIUM 7.5 mg/dL (8.5-10.1); CARBON DIOXIDE 31.9 mmol/L (21-32); CHLORIDE 106 mmol/L (98-107); COR CA(FOR HYPOALB) 9.1 mg/dL (8.5-10.1); COR NA(FOR HYPERGLY) 139 mmol/L (136-145); CREATININE 0.64 mg/dL (0.55-1.02); GLUCOSE 116 mg/dL (65-99); SODIUM 139 mmol/L (136-145); TOTAL PROTEIN 5.4 g/dL (6.4-8.2); eGFR NON BLACK RACES > 60 (>60)
[2025-02-14] MEDS: VERSED ONE (13:21)
[2025-02-14] MEDS: ZOFRAN INJ 4 MG VIAL ONE (13:21)
[2025-02-14] MEDS: DIPRIVAN VIAL 20 ML ONE ×2 (13:22→14:28)
[2025-02-14] MEDS: PEPCID 20 MG VIAL ONE (13:22)
[2025-02-14] MEDS: PEPCID 20 MG VIAL IVP PRN (13:40)
[2025-02-14] MEDS: ZOFRAN INJ 4 MG VIAL IVP PRN (13:40)
[2025-02-14] MEDS: NS 100 ML IV 100 ML ONE (13:51)
[2025-02-14] MEDS: ANCEF VIAL 1 GRAM ONE (13:51)
[2025-02-14] MEDS ORDERED: PRECEDEX INJ VIAL ONE (13:59)
[2025-02-14] MEDS: ANCEF VIAL 1 GRAM IV PRN (13:59)
[2025-02-14] MEDS ORDERED: KETAMINE HCL ONE (13:59)
[2025-02-14] MEDS: LR IV PRN (13:59)
[2025-02-14] MEDS ORDERED: XYLOCAINE 2 % (PLAIN) ONE (13:59)
[2025-02-14] MEDS: VERSED IVP PRN (13:59)
[2025-02-14] MEDS: DIPRIVAN IVP PRN (14:06)
[2025-02-14] MEDS: PRECEDEX INJ VIAL IVP PRN (14:06)
[2025-02-14] MEDS: KETAMINE HCL IV PRN (14:06)
[2025-02-14] MEDS: HEPARIN SODIUM INJ 5000 UNITS ONE (14:08)
[2025-02-14] MEDS: HEPARIN 1,000 UNIT/500 ML-NS 3,000 UNIT/1,500 ML IV.SOLN ONE (14:21)
[2025-02-14] MEDS: HEPARIN SODIUM INJ 5000 UNITS IVP PRN (14:23)
[2025-02-14] MEDS: NS 500 ML IV 500 ML IV ONE (14:29)
[2025-02-14] MEDS: HEPARIN 1,000 UNIT/500 ML-NS 1,000 UNIT/500 ML IV.SOLN ONE (14:29)
[2025-02-14] MEDS: EPHEDRINE SULFATE INJ IVP PRN (14:37)
[2025-02-14] MEDS: NEO-SYNEPHRINE INJ IVP PRN (14:55)
[2025-02-14] MEDS: LASIX ONE (15:12)
[2025-02-14] MEDS: DANTRIUM IVP PRN (15:19)
--- NOTE | 2025-02-14 15:45 | OR.IMMED ---
IMMEDIATE POST-OP NOTE Immediate Post-Op Note Date of surgery/procedure: 02/14/25 Pre-Op Diagnosis: Critical limb ischemia right leg with thrombosis of all of the right superficial femoral artery stents Post-Op Diagnosis: same, s/p EKOS directed thrombolysis of right SFA stents Procedure: Arteriogram right leg, AngioJet thrombectomy of right leg arteries, drug-coated balloon angioplasty right superficial femoral and popliteal arteries, drug-coated balloon plasty right external iliac artery Description of Procedure: see dictation Surgeon/Aviation Mechanic: Darius Findings: Resolution of thrombosis of right superficial femoral artery stents with runoff to the ankle via the peroneal and posterior tibial arteries. Narrowing of the posterior tibial artery where it crosses around the medial malleolus probably secondary to surgical fixation of an ankle fracture. Reconstitution of this and feeling of the foot vessels. Estimated Blood Loss: <50 cc Complications: none Progress Notes: Patient returned to the CCU. For continued care
--- NOTE | 2025-02-14 16:07 | DR.OPNOTE ---
OP NOTE Pre-Op Diagnosis: Critical ischemia right leg, occluded right superficial femoral artery sten Post-Op Diagnosis: same Procedure Date Date Of Procedure: 02/13/25 Procedure: PROCEDURE: Diagnostic aortogram, diagnostic arteriogram right leg, placement of EKOS thrombolytic catheter all the way across the occluded right superficial femoral artery stents into the right popliteal artery via approach from the left brachial artery NARRATIVE: The patient was taken to the operative suite and placed in the supine position. The left groin and entire right leg were prepped and draped in sterile fashion as was the left arm. Patient was given intravenous sedation supervised by myself. Timeout for the procedure obtained. Ultrasound used to identify the left brachial artery and the skin overlying it infiltrated with 0.5% Marcaine. Ultrasound used to guide puncture of the left brachial artery and a 0.012 inch guidewire placed. Incision made over the guidewire at the skin edge with a #11 knife blade and the micro sheath placed over the guidewire into the left brachial artery. Small wire exchanged for a 0.035 inch Advantage Glidewire and the micro sheath exchanged for a 5 [place] vascular sheath. Patient given 5000 units of intravenous heparin. Omni catheter placed over the guidewire into the left subclavian artery and arteriogram showed the subclavian artery to be without disease with junction to the aorta. The Omni catheter was then used to direct the guidewire down the aorta . Omni Catheter was used to perform arteriogram of the aorta showing patent aorta with patent iliac arteries bilaterally. The Omni catheter exchanged for a [place] catheter . Using the [place] catheter and the 0.035 advantage Glidewire we were able to traverse the right iliac artery into the femoral artery and all the way across the occluded right superficial femoral artery stents. Aortogram from above showed reconstitution of the popliteal artery just below the stents. There appeared to be some thrombus in the distal popliteal artery as well . Mancelona catheter removed and over this wire we placed the outer core of the EKOS thrombolytic catheter. The 0.035 inch wire removed and we placed the inner core of the EKOS catheter . The catheter extended all the way through the superficial femoralartery and popliteal artery stents. I could not get it to go any further into the campo popliteal artery due to the length of the catgheter and the fact we were originating from the left arm. This was selective catheterization. The patient was bolused with 4 mg of tPA through the drug port and started on a drip of 1 mg/h to be continued for 24 hours. This was at 20 cc an hour. Coolant of normal saline placed to the coolant port at 30 cc/h. The catheter secured to the skin in the left arm with a 2-0 silk suture ligature and dressing applied. Patient taken back to the CCU for continued directed thrombolysis. Type of Anesthesia: Local (0.5% Marcaine) Anesthesia Comment: plus MAC Findings: Completely occluded right superficial femoral artery stents with one- vessel runoff 5 the right posterior tibial artery to the ankle Type of Fluids Used:: Lactated Ringers Total Amount of Fluid Infused:: 100cc EBL: <100cc Complications:: none Needle/Sponge Count:: correct Disposition/Condition: Pt. tolerated procedure without difficulty. Taken to the CCU in stable condition.
[2025-02-14 16:53] LABS: MEAN PLATELET VOLUME 7.3 fL (7.4-11.0); MONOCYTES # (AUTO) 0.8 x10^3/uL (0.3-0.8)
[2025-02-14 16:56] LABS: BASOPHILS % (AUTO) 0.5 % (0.2-1.0); EOSINOPHILS # (AUTO) 0.2 x10^3/uL (0.0-0.2); LYMPHOCYTES % (AUTO) 25.5 % (21.0-51.0); MEAN CORPUSCULAR HEMOGLOBIN 32.2 pg (27.0-34.0); MEAN CORPUSCULAR HGB CONC 34.7 g/dL (33.0-35.0); MEAN CORPUSCULAR VOLUME 92.7 fL (80.0-100.0); MONOCYTES % (AUTO) 10.2 % (0.0-13.0); NEUTROPHILS # (AUTO) 4.7 x10^3/uL (2.2-4.8); NEUTROPHILS % (AUTO) 61.8 % (42.0-75.0); PLATELET COUNT 122 X10^3/uL (150.0-450.0); RED BLOOD COUNT 1.91 X10^6/uL (3.5-5.4); RED CELL DISTRIBUTION WIDTH 13.5 % (11.6-16.5); WHITE BLOOD COUNT 7.7 X10^3/uL (3.6-10.0)
[2025-02-14 17:03] LABS: HEMATOCRIT 17.7 % (36.0-47.0); HEMOGLOBIN 6.2 g/dL (12.0-16.0)
[2025-02-15 02:39] LABS: EOSINOPHILS # (AUTO) 0.2 x10^3/uL (0.0-0.2); HEMOGLOBIN 7.9 g/dL (12.0-16.0); RED CELL DISTRIBUTION WIDTH 13.9 % (11.6-16.5)
[2025-02-15 02:43] LABS: BASOPHILS # (AUTO) 0.1 X10^3/uL (0.0-0.1); BASOPHILS % (AUTO) 0.5 % (0.2-1.0); HEMATOCRIT 22.7 % (36.0-47.0); LYMPHOCYTES # (AUTO) 2.2 X10^3/uL (1.3-2.9); LYMPHOCYTES % (AUTO) 22.6 % (21.0-51.0); MEAN CORPUSCULAR HEMOGLOBIN 31.7 pg (27.0-34.0); MEAN CORPUSCULAR HGB CONC 34.9 g/dL (33.0-35.0); MEAN CORPUSCULAR VOLUME 90.8 fL (80.0-100.0); MEAN PLATELET VOLUME 7.8 fL (7.4-11.0); MONOCYTES # (AUTO) 1.1 x10^3/uL (0.3-0.8); MONOCYTES % (AUTO) 10.9 % (0.0-13.0); NEUTROPHILS # (AUTO) 6.3 x10^3/uL (2.2-4.8); PLATELET COUNT 110 X10^3/uL (150.0-450.0); WHITE BLOOD COUNT 9.8 X10^3/uL (3.6-10.0)
--- NOTE | 2025-02-15 18:56 | DR.OPNOTE ---
OP NOTE Pre-Op Diagnosis: Critical ischemia right leg, thrombosis of right SFA stents Post-Op Diagnosis: same, see findings Procedure Date Date Of Procedure: 02/14/25 Procedure: PROCEDURE: Arteriogram right leg, AngioJet thrombectomy right leg arteries, drug-coated balloon angioplasty of the right superficial femoral and popliteal arteries, drug-coated balloon angioplasty right external iliac artery NARRATIVE: Patient was taken to the operative suite and placed in the supine position. The left arm and right leg were prepped and draped in sterile fashion. Patient had the EKOS catheter discontinued by myself. This note also documents the second day of EKOS infusion .Timeout for the procedure obtained. The inner core of the EKOS thrombolytic catheter removed and replaced with a 0.014 inch [employer] wire. The outer core removed. Through the catapult sheath already in the left arm and the brachial artery we performed arteriogram showing the right superficial artery now to be completely resolved of thrombus with good flow into the popliteal artery with no obvious thrombus and two-vessel runoff via the peroneal artery and the posterior tibial arteries. Previously prior to placement of EKOS catheter I can only see runoff through the posterior tibial artery at that time. Over this 0.014 inch wire we placed the AngioJet thrombectomy device and performed thrombectomy of all the arteries of the right leg including the popliteal , superficial femoral artery and iliac artery. Over the wire we then placed a 5 mm x 200 mm [place] [employer] drug- coated balloon inflated across the popliteal artery for 3 minutes. This was rem drea and then we placed a 6 mm x 200 mm Homeland drug-coated balloon with overlap with the first balloon, inflated for 3 minutes and removed. This ended angioplasty of all of the popliteal and superficial artery disease and stents. Then across the right external iliac artery we placed a Homeland 6 mm x 150 mm Homeland drug-coated balloon inflated for 3 minutes. All this was removed and repeat arteriogram showed excellent flow through the superficial femoral artery and popliteal artery two-vessel runoff. Patient had a good posterior tibial flow artery to the ankle where patient had previous surgery in the past . The posterior tibial artery was narrowed going around the loop of the medial malleolus but did reconstitute distally. There was also good reconstitution of the foot in general. I did not have a wire long enough to reach the distal poterior tibial artery therefore elected to stop at this time. All devices and wires removed. A tibial band was placed over the puncture si te of the left brachial artery and inflated and then the sheath removed from left brachial artery. Patient taken to the critical care unit in good condition. Anesthesia Comment: MAC Findings: Resolution of the thrombus of the right superficial artery stents, resolution of thrombus in the popliteal artery, patient now has two-vessel runoff via the peroneal and posterior tibial arteries. Previously before thrombolysis I could only see the posterior tibial artery going to the ankle. Type of Fluids Used:: Lactated Ringers Total Amount of Fluid Infused:: 350cc Urine output: 100cc EBL: <50 cc Complications:: none Needle/Sponge Count:: correct Disposition/Condition: Pt. tolerated procedure without difficulty. Taken to the CCU in stable condition.
[2025-02-15] MEDS: NORCO 5/325 MG TAB PO PRN (19:42)
--- NOTE | 2025-02-16 00:29 | NOTE.SOAP ---
Soap Note Note for Day of Date of Exam: 02/15/25 Subjective Data Subjective Data: Status thrombolysis of occluded right superficial artery stents and yesterday had removal of the EKOS catheter with AngioJet thrombectomy of the superficial femoral artery with angioplasty of all the stents. Patient has had some bleeding into the right thigh probably related to the puncture of the right femoral artery from previous stick and continue tPA use. Patient had a drop in hemoglobin and received 2 units of blood. Post infusions hemoglobin is 7.9 today. She is out of bed in a chair taking a diet. Objective Data Temperature: 97.8 F Pulse Rate: 81 Respiratory Rate: 22 Blood Pressure: 114/58 O2 Sat by Pulse Oximetry: 93 Objective Data: O2 saturation is on room air. Patient up in the chair. Right foot is warm and markedly improved. Good urine output. Stable vital signs. She does have some swelling of the right medial upper thigh rated to the puncture site from previous stick and use of tPA. This is probably where the blood loss is coming from. Assessment Assessment: Status post thrombolysis of occluded right superficial femoral artery stents and subsequent angioplasty. Doing much better. Foot is warm. Does have some hematoma of the right thigh. This need to be observed Plan Plan: Ovation. Repeat CBC in the morning. Watch the thigh hematoma. Discontinue Cespedes catheter. Plan discharge home probably Monday. Will need to transition from Lovenox to Xarelto.
[2025-02-16 05:39] LABS: BASOPHILS % (AUTO) 0.4 % (0.2-1.0); EOSINOPHILS # (AUTO) 0.3 x10^3/uL (0.0-0.2); EOSINOPHILS % (AUTO) 2.6 % (0.9-2.9); HEMATOCRIT 20.9 % (36.0-47.0); HEMOGLOBIN 7.2 g/dL (12.0-16.0); LYMPHOCYTES # (AUTO) 2.7 X10^3/uL (1.3-2.9); LYMPHOCYTES % (AUTO) 23.8 % (21.0-51.0); MEAN CORPUSCULAR HEMOGLOBIN 31.6 pg (27.0-34.0); MEAN CORPUSCULAR HGB CONC 34.3 g/dL (33.0-35.0); MEAN CORPUSCULAR VOLUME 92.1 fL (80.0-100.0); MEAN PLATELET VOLUME 8.6 fL (7.4-11.0); MONOCYTES # (AUTO) 1.2 x10^3/uL (0.3-0.8); MONOCYTES % (AUTO) 10.3 % (0.0-13.0); NEUTROPHILS # (AUTO) 7.3 x10^3/uL (2.2-4.8); NEUTROPHILS % (AUTO) 62.9 % (42.0-75.0); PLATELET COUNT 144 X10^3/uL (150.0-450.0); RED BLOOD COUNT 2.27 X10^6/uL (3.5-5.4); WHITE BLOOD COUNT 11.5 X10^3/uL (3.6-10.0)
--- NOTE | 2025-02-16 12:27 | NOTE.SOAP ---
Soap Note Note for Day of Date of Exam: 02/16/25 Subjective Data Subjective Data: Patient stable. Right foot without rest pain. Right foot is warm. We will be removing her Cespedes later today. Patient does have hematoma of the right medial thigh Objective Data Temperature: 98.4 F Pulse Rate: 79 Respiratory Rate: 22 Blood Pressure: 103/60 O2 Sat by Pulse Oximetry: 97 Objective Data: Right foot warm with good Doppler signal. Patient's color much improved. Told her findings now resolved. Hemoglobin equal 7.2 Assessment Assessment: Status post complex revascularization of the right leg with thrombolysis of right superficial femoral artery stents and distal angioplasty. Plan Plan: Cespedes out. Heparin lock IV fluids. Check hemoglobin later.
[2025-02-16] MEDS: ELIQUIS PO SCH (20:54)
[2025-02-17 05:17] LABS: BASOPHILS % (AUTO) 0.3 % (0.2-1.0); EOSINOPHILS # (AUTO) 0.2 x10^3/uL (0.0-0.2); EOSINOPHILS % (AUTO) 1.9 % (0.9-2.9); HEMATOCRIT 20.8 % (36.0-47.0); HEMOGLOBIN 7.1 g/dL (12.0-16.0); LYMPHOCYTES # (AUTO) 1.8 X10^3/uL (1.3-2.9); LYMPHOCYTES % (AUTO) 16.5 % (21.0-51.0); MEAN CORPUSCULAR HEMOGLOBIN 32.1 pg (27.0-34.0); MEAN CORPUSCULAR HGB CONC 34.2 g/dL (33.0-35.0); MEAN CORPUSCULAR VOLUME 93.9 fL (80.0-100.0); MEAN PLATELET VOLUME 8.1 fL (7.4-11.0); MONOCYTES % (AUTO) 9.7 % (0.0-13.0); NEUTROPHILS # (AUTO) 7.7 x10^3/uL (2.2-4.8); NEUTROPHILS % (AUTO) 71.6 % (42.0-75.0); PLATELET COUNT 184 X10^3/uL (150.0-450.0); RED BLOOD COUNT 2.21 X10^6/uL (3.5-5.4); RED CELL DISTRIBUTION WIDTH 14.3 % (11.6-16.5); WHITE BLOOD COUNT 10.8 X10^3/uL (3.6-10.0)
[2025-02-17 07:35] VITALS: TEMP 98.6
[2025-02-17] MEDS: COLACE CAP 100 MG PO PRN (08:18)
[2025-02-17] MEDS: MILK OF MAGNESIA PO PRN (08:20)
--- NOTE | 2025-02-17 10:43 | W.DIS.FURT ---
Summary of Discharge Discharge Summary of Date Date of Exam: 02/17/25 Admission Date Date of Admission: 02/10/25 Admission Diagnosis Patient Problems (Updated 02/10/25 @ 20:29 by Festus Mccoy) Ischemia of right lower extremity (Acute) I99.8 Hospital Course: This is a 60-year-old female with history of peripheral vascular disease and significant tobacco abuse as well as atrial fibrillation and had undergone atherectomy and stenting of the entire right superficial femoral artery on January 28, 2025. She was seen at 1 week post procedure and was doing well. She continued to smoke heavily however and presented to the office on February 10 with a cold ischemic right leg. She was admitted and placed on therapeutic Lovenox. She was taken to the operating suite on February 11 and I was unsuccessful in obtaining access of an EKOS catheter across the right superficial artery stents from either the left groin or the right ankle. She is continued on therapeutic Lovenox and was taken back to the operating suite on 02/13 where we approached the thrombosed stents in the right superficial artery from the left brachial artery. All were occluded with thrombus. At that time only runoff vessel appeared to be the posterior tibial. Placement EKOS catheter all the way across all the stents and underwent 24 hours of tPA thrombolysis. She was taken back to the operating suite on February 14 for repeat arteriogram showing complete resolution of thrombus of all the stents of the right superficial artery. She now had runoff via the posterior tibial and peroneal arteries all the way to the ankle. At the second setting she had angioplasty of all of the stents with drug-coated balloons after AngioJet thrombectomy as well as drug-coated balloon angioplasty of the right external iliac artery. She has done well. He has had significant bleeding around the catheter requiring a total of 2 units of packed red blood cells were transfused. Hemoglobin is 7.2 on discharge. She is stable from a medical standpoint. She is to be discharged home today with a walker. Should be noted that she has a hematoma in the right upper thigh probably from puncture of the right femoral artery from this hospitalization with subsequent tPA use. This will resolve. She be discharged home on usual medications to include Eliquis 5 mg twice daily and Plavix 75n mg daily. She also will be given prescription for Percocet, 5 mg tablets 1 every 6 hours as needed pain. I have encouraged her not to smoke. She will follow-up me in 1 week. Vital Signs: Vital Signs (72 hours) 02/14/25 11:00 02/14/25 12:00 02/14/25 13:00 Temperature 98.1 F Pulse Rate 84 89 82 Respiratory Rate 24 20 21 Blood Pressure 96/53 86/64 O2 Sat by Pulse Oximetry 97 98 100 Oxygen Delivery Method Nasal Cannula Nasal Cannula Nasal Cannula Oxygen Flow Rate 2 2 2 FIO2% 02/14/25 13:43 02/14/25 15:35 02/14/25 15:50 Temperature 98.1 F 97.4 F L 97.7 F Pulse Rate 80 78 80 Respiratory Rate 20 21 16 Blood Pressure 103/62 95/57 92/56 O2 Sat by Pulse Oximetry 100 99 98 Oxygen Delivery Method Nasal Cannula Room Air Room Air Oxygen Flow Rate FIO2% 02/14/25 16:05 02/14/25 16:20 02/14/25 16:35 Temperature 97.7 F 97.6 F 97.6 F Pulse Rate 82 84 81 Respiratory Rate 12 12 19 Blood Pressure 90/61 87/59 100/58 O2 Sat by Pulse Oximetry 98 100 100 Oxygen Delivery Method Room Air Room Air Room Air Oxygen Flow Rate FIO2% 02/14/25 16:46 02/14/25 17:00 02/14/25 17:16 Temperature 97.6 F Pulse Rate 83 Respiratory Rate 14 16 20 Blood Pressure 97/54 O2 Sat by Pulse Oximetry 98 Oxygen Delivery Method Room Air Oxygen Flow Rate FIO2% 02/14/25 17:35 02/14/25 18:35 02/14/25 19:00 Temperature 98.1 F 98.4 F Pulse Rate 91 H 92 H Respiratory Rate 17 22 Blood Pressure 105/63 96/54 O2 Sat by Pulse Oximetry 95 99 Oxygen Delivery Method Room Air Room Air Room Air Oxygen Flow Rate FIO2% 02/14/25 19:35 02/14/25 20:00 02/14/25 20:35 Temperature 98.4 F 98.0 F Pulse Rate 92 H 96 H Respiratory Rate 22 25 H Blood Pressure 88/57 90/54 O2 Sat by Pulse Oximetry 99 100 Oxygen Delivery Method Room Air Room Air Room Air Oxygen Flow Rate FIO2% 02/14/25 22:00 02/14/25 23:00 02/15/25 00:00 Temperature 98.5 F 99.1 F Pulse Rate 96 H 97 H 92 H Respiratory Rate 25 H 20 25 H Blood Pressure 90/54 105/58 103/57 O2 Sat by Pulse Oximetry 100 100 97 Oxygen Delivery Method Room Air Room Air Room Air Oxygen Flow Rate FIO2% 02/15/25 01:00 02/15/25 02:00 02/15/25 03:00 Temperature 98.9 F Pulse Rate 88 97 H 101 H Respiratory Rate 18 25 H 26 H Blood Pressure 100/64 92/63 114/59 O2 Sat by Pulse Oximetry 99 98 100 Oxygen Delivery Method Room Air Room Air Room Air Oxygen Flow Rate FIO2% 02/15/25 04:00 02/15/25 05:00 02/15/25 06:00 Temperature 98.5 F Pulse Rate 91 H 96 H 94 H Respiratory Rate 26 H 22 24 Blood Pressure 109/55 113/64 104/58 O2 Sat by Pulse Oximetry 97 96 95 Oxygen Delivery Method Room Air Room Air Room Air Oxygen Flow Rate FIO2% 02/15/25 07:00 02/15/25 07:00 02/15/25 08:00 Temperature 97.8 F Pulse Rate 89 94 H Respiratory Rate 22 22 Blood Pressure 97/55 90/58 O2 Sat by Pulse Oximetry 97 96 Oxygen Delivery Method Room Air Room Air Room Air Oxygen Flow Rate FIO2% 02/15/25 09:00 02/15/25 09:20 02/15/25 10:00 Temperature Pulse Rate 91 H 90 Respiratory Rate 23 22 Blood Pressure 94/61 100/64 O2 Sat by Pulse Oximetry 94 L 95 Oxygen Delivery Method Room Air Room Air Room Air Oxygen Flow Rate FIO2% 02/15/25 11:00 02/15/25 12:00 02/15/25 13:00 Temperature 98.7 F Pulse Rate 85 86 94 H Respiratory Rate 24 27 H 25 H Blood Pressure 104/58 109/61 116/55 O2 Sat by Pulse Oximetry 97 98 97 Oxygen Delivery Method Room Air Room Air Room Air Oxygen Flow Rate FIO2% 02/15/25 14:00 02/15/25 17:00 02/15/25 18:00 Temperature 99.4 F Pulse Rate 76 101 H 87 Respiratory Rate 24 23 24 Blood Pressure 102/53 95/69 102/56 O2 Sat by Pulse Oximetry 95 97 98 Oxygen Delivery Method Room Air Room Air Room Air Oxygen Flow Rate FIO2% 02/15/25 19:00 02/15/25 19:00 02/15/25 19:42 Temperature Pulse Rate 91 H Respiratory Rate 27 H 22 Blood Pressure 112/59 O2 Sat by Pulse Oximetry 97 Oxygen Delivery Method Room Air Room Air Oxygen Flow Rate FIO2% 02/15/25 20:00 02/15/25 20:17 02/15/25 20:39 Temperature 98.7 F Pulse Rate 98 H Respiratory Rate 25 H 21 Blood Pressure 115/68 O2 Sat by Pulse Oximetry 98 Oxygen Delivery Method Room Air Room Air Oxygen Flow Rate FIO2% 02/15/25 20:42 02/15/25 21:00 02/15/25 21:00 Temperature Pulse Rate 86 86 Respiratory Rate 20 22 22 Blood Pressure 119/67 O2 Sat by Pulse Oximetry 92 L Oxygen Delivery Method Room Air Oxygen Flow Rate FIO2% 02/15/25 21:09 02/15/25 21:30 02/15/25 21:30 Temperature Pulse Rate 101 H Respiratory Rate 18 22 Blood Pressure 135/75 O2 Sat by Pulse Oximetry Oxygen Delivery Method Oxygen Flow Rate FIO2% 02/15/25 22:00 02/15/25 22:00 02/15/25 22:01 Temperature Pulse Rate 95 H 92 H Respiratory Rate 25 H 22 Blood Pressure 136/68 136/68 O2 Sat by Pulse Oximetry 93 L 95 Oxygen Delivery Method Room Air Oxygen Flow Rate FIO2% 02/15/25 22:01 02/15/25 22:01 02/15/25 22:30 Temperature Pulse Rate 95 H 97 H Respiratory Rate 25 H Blood Pressure 136/68 O2 Sat by Pulse Oximetry 95 94 L Oxygen Delivery Method Oxygen Flow Rate FIO2% 02/15/25 22:30 02/15/25 23:00 02/15/25 23:00 Temperature Pulse Rate 93 H Respiratory Rate 25 H Blood Pressure 143/67 127/61 127/61 O2 Sat by Pulse Oximetry 97 Oxygen Delivery Method Room Air Oxygen Flow Rate FIO2% 02/15/25 23:00 02/15/25 23:30 02/15/25 23:30 Temperature Pulse Rate 93 H 101 H Respiratory Rate 17 Blood Pressure 136/81 O2 Sat by Pulse Oximetry 97 100 Oxygen Delivery Method Oxygen Flow Rate FIO2% 02/16/25 00:00 02/16/25 00:00 02/16/25 00:01 Temperature 97.8 F Pulse Rate 81 86 Respiratory Rate 22 Blood Pressure 114/58 114/58 O2 Sat by Pulse Oximetry 93 L Oxygen Delivery Method Room Air Oxygen Flow Rate FIO2% 02/16/25 00:01 02/16/25 00:26 02/16/25 00:30 Temperature 97.8 F Pulse Rate 88 81 88 Respiratory Rate 22 Blood Pressure 114/58 O2 Sat by Pulse Oximetry 93 L Oxygen Delivery Method Oxygen Flow Rate FIO2% 02/16/25 00:30 02/16/25 01:00 02/16/25 01:00 Temperature Pulse Rate 80 Respiratory Rate 25 H Blood Pressure 111/60 115/56 115/56 O2 Sat by Pulse Oximetry 93 L Oxygen Delivery Method Room Air Oxygen Flow Rate FIO2% 02/16/25 01:00 02/16/25 01:31 02/16/25 01:31 Temperature Pulse Rate 88 80 Respiratory Rate 23 Blood Pressure 104/57 O2 Sat by Pulse Oximetry 95 Oxygen Delivery Method Oxygen Flow Rate FIO2% 02/16/25 02:00 02/16/25 02:00 02/16/25 02:00 Temperature Pulse Rate 88 88 Respiratory Rate 21 17 Blood Pressure 114/74 116/74 O2 Sat by Pulse Oximetry 97 98 Oxygen Delivery Method Room Air Oxygen Flow Rate FIO2% 02/16/25 02:21 02/16/25 02:31 02/16/25 02:31 Temperature Pulse Rate 81 Respiratory Rate 25 H 24 Blood Pressure 104/58 O2 Sat by Pulse Oximetry Oxygen Delivery Method Oxygen Flow Rate FIO2% 02/16/25 02:51 02/16/25 03:00 02/16/25 03:00 Temperature Pulse Rate 81 Respiratory Rate 20 22 Blood Pressure 110/58 110/58 O2 Sat by Pulse Oximetry 91 L Oxygen Delivery Method Room Air Oxygen Flow Rate FIO2% 02/16/25 03:00 02/16/25 03:30 02/16/25 03:30 Temperature Pulse Rate 83 84 Respiratory Rate 41 H Blood Pressure 112/57 O2 Sat by Pulse Oximetry 91 L Oxygen Delivery Method Oxygen Flow Rate FIO2% 02/16/25 04:00 02/16/25 04:00 02/16/25 04:00 Temperature 98.8 F Pulse Rate 74 84 Respiratory Rate 18 20 Blood Pressure 113/65 113/65 O2 Sat by Pulse Oximetry 94 L Oxygen Delivery Method Room Air Oxygen Flow Rate FIO2% 02/16/25 04:22 02/16/25 04:30 02/16/25 04:30 Temperature Pulse Rate 82 Respiratory Rate 19 21 Blood Pressure 107/57 O2 Sat by Pulse Oximetry Oxygen Delivery Method Oxygen Flow Rate FIO2% 02/16/25 05:00 02/16/25 05:00 02/16/25 05:00 Temperature Pulse Rate 83 84 Respiratory Rate 16 19 Blood Pressure 107/59 107/59 O2 Sat by Pulse Oximetry 94 L Oxygen Delivery Method Oxygen Flow Rate FIO2% 02/16/25 05:22 02/16/25 05:30 02/16/25 05:30 Temperature Pulse Rate 82 Respiratory Rate 18 19 Blood Pressure 112/61 O2 Sat by Pulse Oximetry Oxygen Delivery Method Oxygen Flow Rate FIO2% 02/16/25 06:00 02/16/25 06:00 02/16/25 06:00 Temperature Pulse Rate 83 81 Respiratory Rate 20 18 Blood Pressure 105/56 105/56 O2 Sat by Pulse Oximetry 93 L 93 L Oxygen Delivery Method Room Air Oxygen Flow Rate FIO2% 02/16/25 06:30 02/16/25 06:30 02/16/25 07:00 Temperature Pulse Rate 77 Respiratory Rate 17 Blood Pressure 93/54 96/54 O2 Sat by Pulse Oximetry Oxygen Delivery Method Oxygen Flow Rate FIO2% 02/16/25 07:00 02/16/25 07:00 02/16/25 07:30 Temperature Pulse Rate 79 Respiratory Rate 21 Blood Pressure 98/55 O2 Sat by Pulse Oximetry Oxygen Delivery Method Room Air Oxygen Flow Rate FIO2% 02/16/25 07:30 02/16/25 08:00 02/16/25 08:00 Temperature 98.4 F Pulse Rate 79 79 Respiratory Rate Blood Pressure 99/57 O2 Sat by Pulse Oximetry 95 97 Oxygen Delivery Method Oxygen Flow Rate FIO2% 02/16/25 08:30 02/16/25 08:30 02/16/25 09:00 Temperature Pulse Rate 76 79 Respiratory Rate 22 Blood Pressure 87/53 O2 Sat by Pulse Oximetry 95 95 Oxygen Delivery Method Oxygen Flow Rate FIO2% 02/16/25 09:00 02/16/25 09:30 02/16/25 09:30 Temperature Pulse Rate 76 Respiratory Rate 12 Blood Pressure 103/60 100/65 O2 Sat by Pulse Oximetry 97 Oxygen Delivery Method Oxygen Flow Rate FIO2% 02/16/25 09:36 02/16/25 09:36 02/16/25 10:00 Temperature Pulse Rate 80 79 Respiratory Rate 20 Blood Pressure O2 Sat by Pulse Oximetry 96 97 Oxygen Delivery Method Room Air Oxygen Flow Rate FIO2% 21 02/16/25 10:00 02/16/25 10:01 02/16/25 11:00 Temperature Pulse Rate 79 79 Respiratory Rate 20 21 19 Blood Pressure 98/60 101/70 O2 Sat by Pulse Oximetry 97 98 Oxygen Delivery Method Room Air Room Air Oxygen Flow Rate FIO2% 02/16/25 11:01 02/16/25 11:08 02/16/25 11:38 Temperature Pulse Rate Respiratory Rate 20 24 20 Blood Pressure O2 Sat by Pulse Oximetry Oxygen Delivery Method Oxygen Flow Rate FIO2% 02/16/25 12:00 02/16/25 12:27 02/16/25 12:30 Temperature 99.1 F 98.4 F Pulse Rate 86 79 86 Respiratory Rate 21 22 21 Blood Pressure 126/68 103/60 O2 Sat by Pulse Oximetry 99 97 Oxygen Delivery Method Room Air Oxygen Flow Rate FIO2% 02/16/25 12:30 02/16/25 13:00 02/16/25 13:00 Temperature Pulse Rate 85 85 Respiratory Rate 21 21 Blood Pressure 131/72 115/80 O2 Sat by Pulse Oximetry 99 Oxygen Delivery Method Room Air Oxygen Flow Rate FIO2% 02/16/25 13:00 02/16/25 13:30 02/16/25 13:30 Temperature Pulse Rate 91 H Respiratory Rate 23 Blood Pressure 115/80 131/68 O2 Sat by Pulse Oximetry 98 Oxygen Delivery Method Oxygen Flow Rate FIO2% 02/16/25 14:00 02/16/25 14:00 02/16/25 14:01 Temperature Pulse Rate 83 85 83 Respiratory Rate 23 29 H 23 Blood Pressure 119/69 O2 Sat by Pulse Oximetry 95 95 95 Oxygen Delivery Method Room Air Oxygen Flow Rate FIO2% 02/16/25 14:01 02/16/25 15:00 02/16/25 15:00 Temperature Pulse Rate 88 93 H Respiratory Rate 24 23 Blood Pressure 119/69 88/54 O2 Sat by Pulse Oximetry 96 Oxygen Delivery Method Room Air Oxygen Flow Rate FIO2% 02/16/25 15:01 02/16/25 15:01 02/16/25 16:00 Temperature 98.1 F Pulse Rate 88 79 Respiratory Rate 24 21 Blood Pressure 88/54 95/56 O2 Sat by Pulse Oximetry 96 Oxygen Delivery Method Room Air Oxygen Flow Rate FIO2% 02/16/25 16:00 02/16/25 16:00 02/16/25 16:19 Temperature Pulse Rate 79 Respiratory Rate 21 15 Blood Pressure 95/56 O2 Sat by Pulse Oximetry 95 Oxygen Delivery Method Oxygen Flow Rate FIO2% 02/16/25 17:00 02/16/25 17:00 02/16/25 17:00 Temperature Pulse Rate 82 82 Respiratory Rate 21 Blood Pressure 106/66 106/66 O2 Sat by Pulse Oximetry 99 99 Oxygen Delivery Method Room Air Oxygen Flow Rate FIO2% 02/16/25 17:18 02/16/25 17:19 02/16/25 17:48 Temperature Pulse Rate Respiratory Rate 14 20 20 Blood Pressure O2 Sat by Pulse Oximetry Oxygen Delivery Method Oxygen Flow Rate FIO2% 02/16/25 18:00 02/16/25 18:00 02/16/25 18:00 Temperature Pulse Rate 85 85 Respiratory Rate 20 Blood Pressure 110/56 110/56 O2 Sat by Pulse Oximetry 99 Oxygen Delivery Method Room Air Oxygen Flow Rate FIO2% 02/16/25 19:00 02/16/25 19:00 02/16/25 19:00 Temperature Pulse Rate 89 90 Respiratory Rate 25 H 23 Blood Pressure 88/56 O2 Sat by Pulse Oximetry 92 L Oxygen Delivery Method Room Air Room Air Oxygen Flow Rate FIO2% 02/16/25 19:00 02/16/25 20:00 02/16/25 20:00 Temperature Pulse Rate 93 H Respiratory Rate Blood Pressure 88/56 O2 Sat by Pulse Oximetry 100 Oxygen Delivery Method Room Air Oxygen Flow Rate FIO2% 02/16/25 20:00 02/16/25 20:00 02/16/25 20:00 Temperature 98.6 F Pulse Rate 87 86 Respiratory Rate 20 Blood Pressure 103/61 103/61 O2 Sat by Pulse Oximetry 97 97 Oxygen Delivery Method Room Air Oxygen Flow Rate FIO2% 02/16/25 20:56 02/16/25 21:00 02/16/25 21:00 Temperature Pulse Rate 88 Respiratory Rate 15 25 H 18 Blood Pressure 109/75 O2 Sat by Pulse Oximetry 93 L 96 Oxygen Delivery Method Room Air Oxygen Flow Rate FIO2% 02/16/25 21:00 02/16/25 21:26 02/16/25 22:00 Temperature Pulse Rate Respiratory Rate 18 Blood Pressure 109/75 113/67 O2 Sat by Pulse Oximetry Oxygen Delivery Method Oxygen Flow Rate FIO2% 02/16/25 22:00 02/16/25 23:00 02/16/25 23:00 Temperature Pulse Rate 89 89 Respiratory Rate 23 24 Blood Pressure 129/77 O2 Sat by Pulse Oximetry 97 93 L Oxygen Delivery Method Oxygen Flow Rate FIO2% 02/16/25 23:00 02/16/25 23:56 02/17/25 00:00 Temperature Pulse Rate 88 Respiratory Rate 23 25 H Blood Pressure 129/77 119/74 O2 Sat by Pulse Oximetry 96 Oxygen Delivery Method Oxygen Flow Rate FIO2% 02/17/25 00:00 02/17/25 00:01 02/17/25 00:01 Temperature Pulse Rate 88 Respiratory Rate Blood Pressure 119/74 O2 Sat by Pulse Oximetry 96 96 Oxygen Delivery Method Oxygen Flow Rate FIO2% 02/17/25 00:56 02/17/25 01:00 02/17/25 01:00 Temperature 99.5 F Pulse Rate 85 85 Respiratory Rate 20 23 Blood Pressure 104/63 O2 Sat by Pulse Oximetry 94 L Oxygen Delivery Method Room Air Oxygen Flow Rate FIO2% 02/17/25 01:00 02/17/25 02:00 02/17/25 02:00 Temperature Pulse Rate 94 H Respiratory Rate 21 21 Blood Pressure 104/63 118/69 O2 Sat by Pulse Oximetry 99 99 Oxygen Delivery Method Oxygen Flow Rate FIO2% 02/17/25 02:00 02/17/25 03:00 02/17/25 03:00 Temperature Pulse Rate 90 Respiratory Rate 16 Blood Pressure 118/69 114/82 114/82 O2 Sat by Pulse Oximetry 95 Oxygen Delivery Method Oxygen Flow Rate FIO2% 02/17/25 03:00 02/17/25 03:29 02/17/25 03:59 Temperature Pulse Rate 88 Respiratory Rate 12 21 22 Blood Pressure O2 Sat by Pulse Oximetry Oxygen Delivery Method Oxygen Flow Rate FIO2% 02/17/25 04:00 02/17/25 04:00 02/17/25 05:00 Temperature 98.9 F Pulse Rate 94 H 89 Respiratory Rate 23 20 Blood Pressure 108/63 108/63 118/77 O2 Sat by Pulse Oximetry 94 L 92 L Oxygen Delivery Method Room Air Oxygen Flow Rate FIO2% 02/17/25 05:00 02/17/25 05:00 02/17/25 05:00 Temperature Pulse Rate Respiratory Rate Blood Pressure 118/77 118/77 118/77 O2 Sat by Pulse Oximetry Oxygen Delivery Method Oxygen Flow Rate FIO2% 02/17/25 05:00 02/17/25 06:00 02/17/25 06:00 Temperature Pulse Rate 90 79 Respiratory Rate 24 Blood Pressure 120/60 120/60 O2 Sat by Pulse Oximetry 94 L Oxygen Delivery Method Oxygen Flow Rate FIO2% 02/17/25 06:00 02/17/25 06:00 02/17/25 06:00 Temperature Pulse Rate 87 Respiratory Rate Blood Pressure 120/60 120/60 O2 Sat by Pulse Oximetry Oxygen Delivery Method Oxygen Flow Rate FIO2% 02/17/25 06:00 02/17/25 06:08 02/17/25 06:38 Temperature Pulse Rate 87 Respiratory Rate 18 20 Blood Pressure O2 Sat by Pulse Oximetry Oxygen Delivery Method Oxygen Flow Rate FIO2% 02/17/25 07:00 02/17/25 07:00 02/17/25 07:00 Temperature Pulse Rate 88 Respiratory Rate 23 Blood Pressure 107/67 O2 Sat by Pulse Oximetry Oxygen Delivery Method Room Air Oxygen Flow Rate FIO2% 02/17/25 07:34 02/17/25 08:00 02/17/25 08:00 Temperature 98.6 F Pulse Rate 91 H Respiratory Rate 22 Blood Pressure O2 Sat by Pulse Oximetry 98 Oxygen Delivery Method Room Air Oxygen Flow Rate FIO2% 02/17/25 08:00 02/17/25 08:11 02/17/25 08:46 Temperature Pulse Rate 91 H Respiratory Rate Blood Pressure 117/65 101/52 O2 Sat by Pulse Oximetry 96 Oxygen Delivery Method Oxygen Flow Rate FIO2% 02/17/25 08:48 02/17/25 09:00 02/17/25 09:51 Temperature Pulse Rate 93 H 84 Respiratory Rate 22 Blood Pressure O2 Sat by Pulse Oximetry 99 95 Oxygen Delivery Method Oxygen Flow Rate FIO2% 02/17/25 10:00 02/17/25 10:00 Temperature 98.6 F Pulse Rate 77 Respiratory Rate Blood Pressure 88/53 O2 Sat by Pulse Oximetry 92 L Oxygen Delivery Method Oxygen Flow Rate FIO2% Labs: Laboratory Last Values WBC 10.8 X10^3/uL (3.6-10.0) H 02/17/25 04:15 RBC 2.21 X10^6/uL (3.5-5.4) L 02/17/25 04:15 Hgb 7.1 g/dL (12.0-16.0) L 02/17/25 04:15 Hct 20.8 % (36.0-47.0) L 02/17/25 04:15 MCV 93.9 fL (80.0-100.0) 02/17/25 04:15 MCH 32.1 pg (27.0-34.0) 02/17/25 04:15 MCHC 34.2 g/dL (33.0-35.0) 02/17/25 04:15 RDW 14.3 % (11.6-16.5) 02/17/25 04:15 Plt Count 184 X10^3/uL (150.0-450.0) 02/17/25 04:15 MPV 8.1 fL (7.4-11.0) 02/17/25 04:15 Neut % (Auto) 71.6 % (42.0-75.0) 02/17/25 04:15 Lymph % (Auto) 16.5 % (21.0-51.0) L 02/17/25 04:15 [place] % (Auto) 9.7 % (0.0-13.0) 02/17/25 04:15 Eos % (Auto) 1.9 % (0.9-2.9) 02/17/25 04:15 Baso % (Auto) 0.3 % (0.2-1.0) 02/17/25 04:15 Neut # (Auto) 7.7 x10^3/uL (2.2-4.8) H 02/17/25 04:15 Lymph # (Auto) 1.8 X10^3/uL (1.3-2.9) 02/17/25 04:15 [place] # (Auto) 1.0 x10^3/uL (0.3-0.8) H 02/17/25 04:15 Eos # (Auto) 0.2 x10^3/uL (0.0-0.2) 02/17/25 04:15 Baso # (Auto) 0.0 X10^3/uL (0.0-0.1) 02/17/25 04:15 Absolute Nucleated RBC 0.1 /100WBC 02/17/25 04:15 PT 13.8 SECONDS (11.8-14.3) 02/10/25 16:20 INR Target Range - 02/10/25 16:20 INR 1.05 (0.8-1.3) 02/10/25 16:20 APTT 38.2 SECONDS (22.9-36.5) H 02/14/25 16:40 PTT Comment - 02/14/25 16:40 Fibrinogen 261 mg/dL (239-489) 02/14/25 16:40 D-Dimer 0.85 ug/ml (0.0-0.57) H 02/10/25 16:20 Sodium 139 mmol/L (136-145) 02/14/25 05:01 Corrected Sodium 139 mmol/L (136-145) 02/14/25 05:01 Potassium 4.0 mmol/L (3.5-5.1) 02/14/25 05:01 Chloride 106 mmol/L (98-107) 02/14/25 05:01 Carbon Dioxide 31.9 mmol/L (21-32) 02/14/25 05:01 BUN 12 mg/dL (7-18) 02/14/25 05:01 Creatinine 0.64 mg/dL (0.55-1.02) 02/14/25 05:01 Est GFR (MDRD) Af Amer > 60 (>60) 02/14/25 05:01 Est GFR (MDRD) Non-Af > 60 (>60) 02/14/25 05:01 Glucose 116 mg/dL (65-99) H 02/14/25 05:01 Lactic Acid 1.4 mmol/L (0.4-2.0) 02/10/25 16:20 Calcium 7.5 mg/dL (8.5-10.1) L 02/14/25 05:01 Corrected Calcium 9.1 mg/dL (8.5-10.1) 02/14/25 05:01 Total Bilirubin 0.60 mg/dL (0.2-1.0) 02/14/25 05:01 AST 24 Units/L (15-37) 02/14/25 05:01 ALT 39 Units/L (12-78) 02/14/25 05:01 Alkaline Phosphatase 85 Units/L (46-116) 02/14/25 05:01 Total Protein 5.4 g/dL (6.4-8.2) L 02/14/25 05:01 Albumin 2.0 g/dL (3.4-5.0) L 02/14/25 05:01 Globulin 3.4 g/dL (2.5-4.5) 02/14/25 05:01 Albumin/Globulin Ratio 0.6 Ratio (1.1-2.1) L 02/14/25 05:01 Blood Type B POSITIVE 02/11/25 15:22 Antibody Screen Negative 02/11/25 15:22 Crossmatch See Detail 02/11/25 15:22 Reason For Visit: ISCHEMIA OF THE RIGHT LEG Discharge Date Discharge Date: 02/17/25 Discharge Diagnosis All Active Problems (Updated 02/10/25 @ 20:29 by Festus Mccoy) Atrial fibrillation (Acute) Gastro-esophageal reflux disease without esophagitis (Acute) Hyperlipidemia (Acute) Neuropathy (Acute) Chronic obstructive pulmonary disease, unspecified (Acute) Essential (primary) hypertension (Acute) Congestive heart failure (Acute) Ischemia of right lower extremity (Acute) Plan of Treatment: Continue with present treatment and follow up plan. Pt is to keep follow up appointment as instructed and take medications as ordered. Discharge Medications Discharge Medications: No Known Allergies Allergy (Verified 02/10/25 17:17) CONTINUE taking the following medications apixaban 5 mg tablet (Eliquis) 5 mg BID 02/11/25 [History] atorvastatin 40 mg tablet 40 mg DAILY 02/11/25 [History] carvedilol 6.25 mg tablet 6.25 mg BID 02/11/25 [History] cetirizine 10 mg tablet (Zyrtec) 10 mg DAILY 02/11/25 [History] clopidogrel 75 mg tablet 75 mg DAILY 02/11/25 [History] gabapentin 300 mg tablet 300 mg PO BID 02/11/25 [History] hydrocodone 5 mg-acetaminophen 325 mg tablet 5 tab TID PRN Pain 02/11/25 [History] methocarbamol 750 mg tablet 750 mg Q4HR 02/11/25 [History] montelukast 10 mg tablet 10 mg DAILY 02/11/25 [History] omeprazole 40 mg capsule,delayed release 40 mg DAILYAC 02/11/25 [History] paroxetine HCl 20 mg tablet 20 mg PO DAILYAC 02/11/25 [History] potassium chloride 10 mEq tablet,extended release 10 meq PO DAILY 02/11/25 [History] pramipexole 0.125 mg tablet 0.125 mg DAILY 02/11/25 [History] sacubitril 49 mg-valsartan 51 mg tablet (Entresto) 49 - 51 tab BID 02/11/25 [History] Discharge Disposition Assessment: see hospital course Discharge Plan Discharge Plan Hospital Course: This is a 60-year-old female with history of peripheral vascular disease and significant tobacco abuse as well as atrial fibrillation and had undergone atherectomy and stenting of the entire right superficial femoral artery on January 28, 2025. She was seen at 1 week post procedure and was doing well. She continued to smoke heavily however and presented to the office on February 10 with a cold ischemic right leg. She was admitted and placed on therapeutic Lovenox. She was taken to the operating suite on February 11 and I was unsuccessful in obtaining access of an EKOS catheter across the right superficial artery stents from either the left groin or the right ankle. She is continued on therapeutic Lovenox and was taken back to the operating suite on 02/13 where we approached the thrombosed stents in the right superficial artery from the left brachial a rtery. All were occluded with thrombus. At that time only runoff vessel appeared to be the posterior tibial. Placement EKOS catheter all the way across all the stents and underwent 24 hours of tPA thrombolysis. She was taken back to the operating suite on February 14 for repeat arteriogram showing complete resolution of thrombus of all the stents of the right superficial artery. She now had runoff via the posterior tibial and peroneal arteries all the way to the ankle. At the second setting she had angioplasty of all of the stents with drug-coated balloons after AngioJet thrombectomy as well as drug-coated balloon angioplasty of the right external iliac artery. She has done well. He has had significant bleeding around the catheter requiring a total of 2 units of packed red blood cells were transfused. Hemoglobin is 7.2 on discharge. She is stable from a medical standpoint. She is to be discharged home today with a walker. Should be noted that she has a hematoma in the right upper thigh probably from puncture of the right femoral artery from this hospitalization with subsequent tPA use. This will resolve. She be discharged home on usual medications to include Eliquis 5 mg twice daily and Plavix 75n mg daily. She also will be given prescription for Percocet, 5 mg tablets 1 every 6 hours as needed pain. I have encouraged her not to smoke. She will follow-up me in 1 week. Patient Disposition: 01 HOME, SELF-CARE Condition: Stable Health Concerns: Post Hospitalization: new medications and changes needed to prevent readmission or further decline. Pt educated and given instructions on all concerns. Plan of Treatment: Continue with present treatment and follow up plan. Pt is to keep follow up appointment as instructed and take medications as ordered. Assessment: see hospital course Prescription drug monitoring program results: PDMP reviewed and no concerns identified Prescriptions: New oxycodone-acetaminophen [Percocet] 5-325 mg tablet 1 tab PO Q6H MDD 4 PRNQty: 30 0RF Continued atorvastatin 40 mg Tablet 40 mg DAILY carvedilol 6.25 mg Tablet 6.25 mg BID cetirizine [Zyrtec] 10 mg Tablet 10 mg DAILY potassium chloride 10 mEq Tablet Extended Release 10 meq PO DAILY clopidogrel 75 mg Tablet 75 mg DAILY omeprazole 40 mg Capsule,Delayed Release(Dr/Ec) 40 mg DAILYAC paroxetine HCl 20 mg Tablet 20 mg PO DAILYAC pramipexole 0.125 mg Tablet 0.125 mg DAILY Eliquis 5 mg Tablet 5 mg BID Entresto 49-51 mg Tablet 49 - 51 tab BID hydrocodone-acetaminophen 5-325 mg Tablet 5 tab TID PRN (Reason: Pain) methocarbamol 750 mg Tablet 750 mg Q4HR montelukast 10 mg Tablet 10 mg DAILY gabapentin 300 mg Tablet 300 mg PO BID Follow ups/Referrals Follow ups/Referrals: [facility],None [Primary Care Provider] - 3 days Instructions Instructions: Endovascular Therapy for Peripheral Vascular Disease: What to Know After Stand Alone Forms: Excuse From Work or School, Find Help Web Site, Post Hospital Follow Up Care Print Language: MALAY
[2025-02-17 11:13] VITALS: RESP 20
[2025-02-17 11:14] VITALS: BP 99/56; PULSE 83; O2SAT 98
== END 2025-02-17 12:15 | disposition home or self-care (01) | DRG 271 ==
LOC: ER 15:08 → MED/SURG 17:42 → ICU 02-13 15:57
PROVIDERS: ADMIT Surgery; ATTEND Surgery
DX: K21.9 Gastro-esophageal reflux disease without esophagitis; G62.9 Polyneuropathy, unspecified; I11.0 Hypertensive heart disease with heart failure; Z53.8 Procedure and treatment not carried out for other reasons; Z95.0 Presence of cardiac pacemaker; Y92.230 Patient room in hospital as the place of occurrence of the external cause; M79.672 Pain in left foot; I70.221 Atherosclerosis of native arteries of extremities with rest pain, right leg; F32.89 Other specified depressive episodes; S70.11XA Contusion of right thigh, initial encounter; Z79.01 Long term (current) use of anticoagulants; M79.671 Pain in right foot; I74.3 Embolism and thrombosis of arteries of the lower extremities; I48.91 Unspecified atrial fibrillation; X58.XXXA Exposure to other specified factors, initial encounter; J44.9 Chronic obstructive pulmonary disease, unspecified; R79.1 Abnormal coagulation profile; I50.9 Heart failure, unspecified; R94.31 Abnormal electrocardiogram [ECG] [EKG]; Z98.890 Other specified postprocedural states; Z72.0 Tobacco use